=== PATIENT | male | born 1950 | race Caucasian/White ===

== ENCOUNTER 2016-04-19 03:53 | Inpatient (IN) | payer OTHER, MEDICAID, MEDICARE ==
[2016-04-19] VITALS (18 sets, daily range): BP systolic 98–203; BP diastolic 54–78; PULSE 69–136; RESP 18–38; TEMP 98–99.8; O2SAT 78–98
[~2016-04-19] VITALS: Ht 180.3 cm; Wt 95.4 kg
[~2016-04-19 03:53] MED LIST: FLOV110A INH; FLUT50I NASAL; IPRA0.02 IN; LEVA500T33 PO; REME15TA PO; RIVA15 PO; TRAZ100 PO; UMEC1AER PO
[2016-04-19] MEDS ORDERED: ONDANSETRON HCL 4 MG/2 ML VIAL IV PUSH ONE (04:00)
[2016-04-19] MEDS ORDERED: SODIUM CHLORIDE 0.9% FLUSH 5 ML FLUSH IVF PRN (04:00)
[2016-04-19] MEDS ORDERED: RESP: ALBUTEROL 2.5 MG/IPRATROPIUM 0.5 MG NEB (SCH) ONE ×2 (04:03→04:04)
[2016-04-19] MEDS ORDERED: RESP: ALBUTEROL 2.5 MG/IPRATROPIUM 0.5 MG NEB (PRN) ONE (04:04)
[2016-04-19 04:14] LABS: BASOPHIL # 0.1 TH/MM3 (0-0.2); BASOPHIL % 0.6 % (0.0-2.0); EOSINOPHIL # 0.4 TH/MM3 (0-0.4); EOSINOPHIL % 2.6 % (0.0-4.0); HEMATOCRIT 50.9 % (39.0-51.0); HEMO FLAGS DIFF FINAL; LYMPH % 18.6 % (9.0-44.0); MEAN CELL VOLUME 83.7 FL (80.0-100.0); MEAN CORPUSCULAR HEMOGLOBIN 27.4 PG (27.0-34.0); MEAN CORPUSCULAR HGB CONC 32.7 % (32.0-36.0); MONO % 3.2 % (0.0-8.0); PLATELET COUNT 213 TH/MM3 (150-450); RED BLOOD COUNT 6.08 MIL/MM3 (4.50-5.90); RED CELL DISTRIBUTION WIDTH 16.3 % (11.6-17.2)
[2016-04-19] MEDS ORDERED: UMEC1AER INH (04:15)
[2016-04-19] MEDS ORDERED: REME15TA PO (04:15)
[2016-04-19] MEDS ORDERED: FLUTI110I INH (04:15)
[2016-04-19] MEDS ORDERED: IPRA1POW8 (04:15)
[2016-04-19] MEDS ORDERED: CEPH-459 PO (04:15)
[2016-04-19] MEDS ORDERED: TRAZ100T4 PO (04:15)
[2016-04-19] MEDS ORDERED: FLUT1SPR22 (04:15)
[2016-04-19 04:24] LABS: APTT (PATIENT) 23.8 SEC (24.3-30.1); INTERNATIONAL NORMALIZED RATIO 0.9 RATIO; PROTHROMBIN TIME - PATIENT 10.2 SEC (9.8-11.6)
[2016-04-19 04:28] LABS: MAGNESIUM 1.8 MG/DL (1.5-2.5); POTASSIUM 4.1 MEQ/L (3.5-5.1)
--- NOTE | 2016-04-19 04:32 | RADRPT ---
EXAM DATE/TIME: 04/19/2016 04:08 [facility] COMPARISON: CHEST SINGLE AP, January 23, 2016, 12:07. INDICATIONS : Shortness of breath. MEDICAL HISTORY : Chronic obstructive pulmonary disease. Carcinoma, lung. Pneumonia SURGICAL HISTORY : None. ENCOUNTER: Initial ACUITY: 1 day PAIN SCORE: Non-responsive. LOCATION: Bilateral chest FINDINGS: A single view of the chest demonstrates hyperinflation and right midlung and right basilar consolidat ion. Left lung clear. Stable density in the right upper lobe. The cardiomediastinal contours are unre markable. Osseous structures are intact. CONCLUSION: 1. Interval development of probable pneumonia in the right midlung and right lower lobe. 2. Opacity in the right upper lobe is unchanged. 3. Recommend treatment and followup to resolution. Kuashik Littlejohn MD on April 19, 2016 at 4:29 Board Certified Radiologist. This report was verified electronically.
[2016-04-19] MEDS ORDERED: VANCOMYCIN INJ 1,000 MG in SODIUM CHLOR 0.9% 250 ML INJ 250 ML IV ONE (04:45)
[2016-04-19] MEDS ORDERED: PIPERACIL-TAZO 4.5 GM PREMIX 100 ML IV ONE (04:45)
[2016-04-19 04:57] LABS: BLOOD GAS VENOUS BASE EXCESS -0.5 mmol/L (-2-2); BLOOD GAS VENOUS HCO3 25 mmol/L (22-26); BLOOD GAS VENOUS O2 CONTENT 22.7 Vol % (9.0-17.0); BLOOD GAS VENOUS O2 HGB SAT 91 % (70-76); BLOOD GAS VENOUS PCO2 46 mmHg (44-48); BLOOD GAS VENOUS PO2 117 mmHg (35-40); BLOOD GAS VENOUS pH 7.34 (7.360-7.400); TEMP CORR TO 98.6
[2016-04-19 04:58] LABS: CRITICAL VALUE NO; OXYGEN DEVICE BiPAP
[2016-04-19 04:59] LABS: FIO2 100 %
[2016-04-19 05:00] LABS: DRAW SITE IV; STAT YES
[2016-04-19] MEDS ORDERED: SODIUM CHLOR 0.9% 1000 ML INJ 1,000 ML IV ONE ×2 (05:00)
--- NOTE | 2016-04-19 05:45 | HHI.HP ---
HPI Service Critical Care Medicine Primary Care Physician Non-Staff Admission Diagnosis Hypoxic Respiratory failure, Severe Sepsis, PNA. Diagnosis: Chief Complaint: Can't breathe. Travel History International Travel<30 Days: No Contact w/Intl Traveler <30 Da: No Traveled to Known Affected Are: No History of Present Illness 65 y/o man with longstanding COPD presents with hypoxemic respiratory distress. Improved on BiPAP, still requiring 85% FiO2. Chronic right lung infiltrate followed by Dr. Kearns. Review of Systems ROS No chest pain. Severe SOB. Past Family Social History Allergies: Uncoded Allergies: PERFUMES/COLOGNES (Adverse Reaction, Intermediate, Wheezing, 01/23/16) SOB/DIFFICULTY BREATHING Past Medical History Past Medical History COPD Pulmonary embolus Atrial fibrillation with RVR Past Surgical History Wrist surgery Right shoulder surgery Reported Medications Ipratropium [place] 0.03 % Spr 2 [place] NA BID Ipratropium [place] 1 IN Anoro Ellipta 62.5-25 Mcg/INH (Umeclidinium-Vilanterol) 1 Aer Aer 1 Inhaler PO DIRECTED Flovent Hfa (Fluticasone Propionate) 110 Mcg Aer 1 Puff INH BID Ventolin Hfa (Albuterol Sulfate) 8 Gm Aero 1 Puff INH Q4H PRN * SHAKE WELL BEFORE USE * Mobic (Meloxicam) 15 Mg Tab 15 Mg PO DAILY Remeron 15 mg (Mirtazapine) 15 Mg Tab 1 Tab PO HS Trazodone Hcl (Trazodone HCl) 100 Mg Tab 100 Mg PO HS Ultram (Tramadol HCl) 50 Mg Tab 100 Mg PO Q4H PRN Prednisone 5 Mg Tab 10 Mg PO DAILY Allergies: Coded Allergies: No Known Allergies (Verified , 12/25/15) Family History Colon cancer Social History Quit smoking a few weeks ago. Had smoked 1 pack per day for many years prior to that. Denies alcohol or illicit drug use. Physical Exam Vital Signs Vital Signs Date Time Temp Pulse Resp B/P Pulse Ox O2 Delivery O2 Flow Rate FiO2 04/19/16 04:48 126 26 109/64 98 BiPAP 04/19/16 04:18 98 100 04/19/16 04:09 136 38 171/66 94 BiPAP 04/19/16 04:00 122 38 97 Aerosol Mask 04/19/16 04:00 97 Aerosol Mask 04/19/16 04:00 38 97 Aerosol Mask 04/19/16 03:56 99.8 122 38 142/78 97 Physical Exam Gen: Ill-appearing man in respiratory distress. Head: Normal. Neck: Supple, airway widely patent. Heart: Irreg Irreg, rate 120s. No JVD. Distant sounds. Lungs: Some wheezing but acceptable air entry now. Tachypnea, labored. No crackles. Abdomen: Soft. nondistended, No guarding. Extremities: Warm, well perfused. Neuro: O X 3, anxious. M/S grossly intact. Laboratory Laboratory Tests Test 04/19/16 04/19/16 04/19/16 04:00 04:21 04:35 White Blood Count 16.0 Red Blood Count 6.08 Hemoglobin 16.6 Hematocrit 50.9 Mean Corpuscular Volume 83.7 Mean Corpuscular Hemoglobin 27.4 Mean Corpuscular Hemoglobin 32.7 Concent Red Cell Distribution Width 16.3 Platelet Count 213 Mean Platelet Volume 8.8 Neutrophils (%) (Auto) 75.0 Lymphocytes (%) (Auto) 18.6 Monocytes (%) (Auto) 3.2 Eosinophils (%) (Auto) 2.6 Basophils (%) (Auto) 0.6 Neutrophils # (Auto) 12.0 Lymphocytes # (Auto) 3.0 Monocytes # (Auto) 0.5 Eosinophils # (Auto) 0.4 Basophils # (Auto) 0.1 CBC Comment DIFF FINAL Differential Comment Prothrombin Time 10.2 Prothromb Time International 0.9 Ratio Activated Partial 23.8 Thromboplast Time Sodium Level 143 Potassium Level 4.1 Chloride Level 108 Carbon Dioxide Level 29.0 Anion Gap 6 Blood Urea Nitrogen 21 Creatinine 0.88 Estimat Glomerular Filtration 87 Rate Random Glucose 130 Calcium Level 8.9 Magnesium Level 1.8 Troponin I 0.02 Blood Gas Puncture Site IV Blood Gas Patient Temperature 98.6 Venous Blood pH 7.34 Venous Blood Partial Pressure 46 CO2 Venous Blood Partial Pressure 117 O2 Venous Blood HCO3 25 Venous Blood Oxygen Saturation 91 Venous Blood Oxygen Content 22.7 Venous Blood Base Excess -0.5 Oxygen Delivery Device BiPAP Blood Gas Inspired Oxygen 100 Lactic Acid Level 2.2 Date/Time Procedure Status Source Growth 04/19/16 04:35 Aerobic Blood Culture Received Blood Peripheral Pending 04/19/16 04:35 Anaerobic Blood Culture Received Blood Peripheral Pending Result Diagram: 04/19/1639904/19/160 Assessment and Plan Assessment and Plan Assess: 1. Hypoxemic Respiratory Failure. 2. COPD exacerbation. 3. Chronic Right Lung infiltrate. 4. Paroxysmal A-fib. 5. Hx of Pulmonary Embolus. Plan: 1. BiPAP. 2. Keep sats 88 - 93%. 3. Steroids. 4. Bronchodilators. 5. Cover with levaquin.. 6. Review ID workup from previous admission. 7. Heparin 5000 bib. 8. Pepcid. Overall impression: Critically ill with hypoxemic respiratory failure requiring BiPAP NIV and high FiO2; may require intubation and mechanical ventilation soon. Critical care 38 mins Joselito Blas MD Apr 19, 2016 05:44
--- NOTE | 2016-04-19 05:58 | PD ---
HPI Chief Complaint: Respiratory Distress Time Seen by Provider: 03:56 Travel History International Travel<30 days: No Contact w/Intl Traveler<30days: No Traveled to known affect area: No History of Present Illness HPI Patient is 65-year-old male with a history of COPD presents emergency Department with fairly sudden onset shortness of breath tonight. Patient called 911 on EMS arrival patient was satting 77 on room air. Patient was started on treatments and received 125 mg Solu-Medrol in route. On arrival patient appears significant only short of breath, he vomited once just on arrival and did receive some Zofran as well. Patient is followed by Dr. Thompson for history of COPD and a cavitary lesion in his right upper lobe. Patient does have an ankle bracelet on but states he has not been to [facility] recently, denies hemoptysis denies night sweats. Denies any history of contact with tuberculosis. Patient denies any fever. PFSH Past Medical History Hx Anticoagulant Therapy: Yes (XARELTO) Arthritis: Yes Asthma: Yes Blood Disorders: No Anxiety: Yes (TAKES TRAZADONE) Depression: No Cancer: No Cardiovascular Problems: Yes (ARRYTHMIA) COPD: Yes Dementia: Yes Diminished Hearing: No Endocrine: No GERD: Yes Genitourinary: No Headaches: Yes Hepatitis: Yes (hep c) Hypertension: Yes Immune Disorder: No Implanted Vascular Access Dvce: Yes Musculoskeletal: No Neurologic: Yes (DIZZINESS, HEADACHES) Psychiatric: Yes Reproductive: No Respiratory: Yes (COPD, PNEUMONIA, ASTHMA) Pancreatitis: Yes Past Surgical History Body Medical Devices: HAS RIGHT ANKLET ON FOR HOUSE ARREST ON RIGHT ANKLE Other Surgery: Yes (LEFT/RIGHT WRIST, SHOULDER REPAIR) Social History Alcohol Use: No Tobacco Use: Yes Substance Use: No Allergies-Medications (Allergen,Severity, Reaction): Uncoded Allergies: PERFUMES/COLOGNES (Adverse Reaction, Intermediate, Wheezing, 01/23/16) SOB/DIFFICULTY BREATHING Reported Meds & Prescriptions Reported Meds & Active Scripts Active Reported Allergy Nasal [place] 24 Ho (Fluticasone Propionate (Nasal)) 50 Mcg/Act Spr Ipratropium [place] 1 Pow Pow Anoro Ellipta Inh (Umeclidinium/Vilanterol) 62.5-25 Mcg/Act Aero 1 Puff INH DAILY Trazodone (Trazodone HCl) 100 Mg Tab 100 Mg PO HS Keflex (Cephalexin) 250 Mg Cap 250 Mg PO Q6H Remeron (Mirtazapine) 15 Mg Tab 15 Mg PO HS Flovent Hfa 12 GM Inh (Fluticasone Propionate) 110 Mcg/Act Inh 2 Puff INH BID Review of Systems Except as stated in HPI: all other systems reviewed are Neg Physical Exam Narrative GENERAL: [Well-developed, well-nourished, appears significant short of breath tripod position intercostal and supraclavicular retractions. Tachycardic and tachypneic speaking in short phrases only. SKIN: Warm and dry. HEAD: Atraumatic. Normocephalic. EYES: Pupils equal and round. No scleral icterus. No injection or drainage. ENT: No nasal bleeding or discharge. Mucous membranes pink and moist. NECK: Trachea midline. No JVD. CARDIOVASCULAR: Tachycardia with regular rhythm. No murmur appreciated. RESPIRATORY: No increased respiratory work of breathing as above, decreased air entry bilaterally. No rales or rhonchi appreciated. Tachypneic. GASTROINTESTINAL: Abdomen soft, non-tender, nondistended. Hepatic and splenic margins not palpable. MUSCULOSKELETAL: No obvious deformities. No clubbing. No cyanosis. No edema. NEUROLOGICAL: Awake and alert. No obvious cranial nerve deficits. Motor grossly within normal limits. Normal speech. PSYCHIATRIC: Appropriate mood and affect; insight and judgment normal. Data Data Last Documented VS Vital Signs Date Time Temp Pulse Resp B/P Pulse Ox O2 Delivery O2 Flow Rate FiO2 04/19/16 04:48 126 26 109/64 98 BiPAP 04/19/16 04:18 100 04/19/16 03:56 99.8 Orders Electrocardiogram (04/19/16 03:56) Basic Metabolic Panel (Bmp) (04/19/16 03:56) Complete Blood Count With Diff (04/19/16 03:56) Magnesium (Mg) (04/19/16 03:56) Prothrombin Time / Inr (Pt) (04/19/16 03:56) Act Partial Throm Time (Ptt) (04/19/16 03:56) Troponin I (04/19/16 03:56) Ecg Monitoring (04/19/16 03:56) Bilateral Bp Monitoring (04/19/16 03:56) Iv Access Insert/Monitor (04/19/16 03:56) Oximetry (04/19/16 03:56) Oxygen Administration (04/19/16 03:56) Sodium Chloride 0.9% Flush (Ns Flush) (04/19/16 04:00) Chest, Single Ap (04/19/16 ) Resp Bipap / Cpap Non Invas Vt (04/19/16 ) Ondansetron Inj (Zofran Inj) (04/19/16 04:00) Albuterol-Ipratropium Neb (Duoneb Neb) (04/19/16 04:03) Albuterol-Ipratropium Neb (Duoneb Neb) (04/19/16 04:04) Albuterol-Ipratropium Neb (Duoneb Neb) (04/19/16 04:04) Blood Gas Venous (Vbg) (04/19/16 04:23) Lactic Acid (04/19/16 04:31) Vancomycin Inj (Vancomycin Inj) (04/19/16 04:45) Piperacil-Tazo 4.5 Gm Premix (Zosyn 4.5 (04/19/16 04:45) Blood Culture (04/19/16 04:31) Isolation 08,20 (04/19/16 04:34) Sodium Chlor 0.9% 1000 Ml Inj (Ns 1000 M (04/19/16 05:00) Sodium Chlor 0.9% 1000 Ml Inj (Ns 1000 M (04/19/16 05:00) Admit Order (Ed Use Only) (04/19/16 ) Labs Laboratory Tests Test 04/19/16 04/19/16 04/19/16 04:00 04:21 04:35 White Blood Count 16.0 TH/MM3 Red Blood Count 6.08 MIL/MM3 Hemoglobin 16.6 GM/DL Hematocrit 50.9 % Mean Corpuscular Volume 83.7 FL Mean Corpuscular Hemoglobin 27.4 PG Mean Corpuscular Hemoglobin 32.7 % Concent Red Cell Distribution Width 16.3 % Platelet Count 213 TH/MM3 Mean Platelet Volume 8.8 FL Neutrophils (%) (Auto) 75.0 % Lymphocytes (%) (Auto) 18.6 % Monocytes (%) (Auto) 3.2 % Eosinophils (%) (Auto) 2.6 % Basophils (%) (Auto) 0.6 % Neutrophils # (Auto) 12.0 TH/MM3 Lymphocytes # (Auto) 3.0 TH/MM3 Monocytes # (Auto) 0.5 TH/MM3 Eosinophils # (Auto) 0.4 TH/MM3 Basophils # (Auto) 0.1 TH/MM3 CBC Comment DIFF FINAL Differential Comment Prothrombin Time 10.2 SEC Prothromb Time International 0.9 RATIO Ratio Activated Partial 23.8 SEC Thromboplast Time Sodium Level 143 MEQ/L Potassium Level 4.1 MEQ/L Chloride Level 108 MEQ/L Carbon Dioxide Level 29.0 MEQ/L Anion Gap 6 MEQ/L Blood Urea Nitrogen 21 MG/DL Creatinine 0.88 MG/DL Estimat Glomerular Filtration 87 ML/MIN Rate Random Glucose 130 MG/DL Calcium Level 8.9 MG/DL Magnesium Level 1.8 MG/DL Troponin I 0.02 NG/ML Blood Gas Puncture Site IV Blood Gas Patient Temperature 98.6 Venous Blood pH 7.34 Venous Blood Partial Pressure 46 mmHg CO2 Venous Blood Partial Pressure 117 mmHg O2 Venous Blood HCO3 25 mmol/L Venous Blood Oxygen Saturation 91 % Venous Blood Oxygen Content 22.7 Vol % Venous Blood Base Excess -0.5 mmol/L Oxygen Delivery Device BiPAP Blood Gas Inspired Oxygen 100 % Lactic Acid Level 2.2 mmol/L MDM Medical Decision Making Medical Screen Exam Complete: Yes Emergency Medical Condition: Yes Interpretation(s) EKG interpretation somewhat limited by motion artifact. Sinus tachycardia at a rate of 130, normal axis and normal R-wave progression. No obvious ST-T changes. This is an abnormal EKG. Differential Diagnosis COPD exacerbation, pneumonia, CHF, Sirs, sepsis, ACS, [place]. Narrative Course Patient was roomed in the emergency department, he is significant short of breath. He does agree to intubation should it be required. Certainly there is a risk of aspiration given a history of vomiting. However we'll very cautiously try him on a trial of BiPAP. He is started on the mask and tolerated it significantly well. He was given Zofran, chest x-ray reveals significant ammonia of the right lung, cavitary lesion is unchanged. He was placed on respiratory isolation in the emergency department. He did improve with BiPAP in the ER. Broad-spectrum antibiotics were started, he does have an elevated white blood cell count. Fluid resuscitation To a minimum given his lactic acid is 2.2. 2 L normal saline were started. ABG is reassuring PCO2 is 46 and a pH is 7.34. Patient was satting 98% on BiPAP. However he is requiring significant oxygen levels to maintain a saturation. Monitor very closely for emesis and displayed none while he was in the emergency department for 2 hours. Patient was discussed with Dr. Ballesteros who will admit. Critical Care Narrative Aggregate critical care time was 35 minutes. Time to perform other separately billable procedures was not included in the critical care time. My time did not include minutes spent treating any other patients simultaneously or on activities that did not directly contribute to the patient's treatment. The services I provided to this patient were to treat and/or prevent clinically significant deterioration that could result in: and permanent disability. I provided critical care services requiring my management, as noted below: Chart data review, documentation time, medication orders and management, vital sign assessments/reviewing monitor data, ordering and reviewing lab tests, ordering and interpreting/reviewing x-rays and diagnostic studies, care of the patient and discussion of the patient with the admitting physicians. Diagnosis Primary Impression: Sepsis Qualified Code: A41.9 - Sepsis, due to unspecified organism Additional Impressions: Acute respiratory failure with hypoxia Pneumonia COPD (chronic obstructive pulmonary disease) Admitting Information Admitting Physician Requests: Admit Condition: Critical Donny Sandoval MD Apr 19, 2016 05:58
[2016-04-19] MEDS ORDERED: ACETAMINOPHEN 325 MG TAB PO PRN (06:00)
[2016-04-19] MEDS ORDERED: CHLORHEXIDINE GLUCONATE 2 % 1 PACK (2 CLOTHS) TOP PRN (06:00)
[2016-04-19] MEDS ORDERED: MISCELLANEOUS NURSING INFORMATION XX SCH (06:00)
[2016-04-19] MEDS: SODIUM CHLOR 0.9% 1000 ML INJ 1,000 ML IV SCH ×2 (06:37→17:34)
[2016-04-19] MEDS: RESP: ALBUTEROL 2.5 MG/IPRATROPIUM 0.5 MG NEB (SCH) NEB ×4 (08:00→20:39)
[2016-04-19] MEDS: MORPHINE SULFATE 4 MG/ML INJ IV PRN ×6 (08:31→23:41)
[2016-04-19] MEDS: SODIUM CHLORIDE 0.9% FLUSH 5 ML FLUSH IV FLUSH SCH ×2 (08:32→20:29)
[2016-04-19] MEDS: HYDROCORTISONE SOD SUCCINATE 100 MG VIAL IV PUSH SCH ×4 (08:32→23:29)
[2016-04-19] MEDS: FAMOTIDINE 20 MG TAB PO SCH ×2 (08:32→20:28)
[2016-04-19] MEDS: LEVOFLOXACIN 750 MG PREMIX INJ 150 ML IV SCH (08:32)
[2016-04-19] MEDS: HEPARIN SODIUM - SQ 10,000 UNITS/ML VIAL SQ SCH ×2 (08:32→20:27)
[2016-04-19] MEDS ORDERED: IOHEXOL 350 MG/ML 10 ML VIAL (for RAD DIAG) IV ONE ×2 (09:48→10:22)
[2016-04-19] MEDS ORDERED: ONDANSETRON HCL 4 MG/2 ML VIAL IV PRN (10:00)
--- NOTE | 2016-04-19 10:06 | RADRPT ---
EXAM DATE/TIME: 04/19/2016 09:43 [facility] COMPARISON: CT PULMONARY ANGIOGRAM, November 26, 2015, 10:55. INDICATIONS : Dyspnea and chest pain IV CONTRAST: 74 cc Omnipaque 350 (iohexol) IV RADIATION DOSE: 23.44 CTDIvol (mGy) MEDICAL HISTORY : Chronic obstructive pulmonary disease. Hypertension. SURGICAL HISTORY : None. ENCOUNTER: Initial ACUITY: 1 day PAIN SCALE: 8/10 LOCATION: Bilateral chest TECHNIQUE: Volumetric scanning of the chest was performed using a pulmonary embolism protocol MIP images were re constructed. Using automated exposure control and adjustment of the mA and/or kV according to patien t size, radiation dose was kept as low as reasonably achievable to obtain optimal diagnostic quality images. FINDINGS: PULMONARY ARTERIES: No filling defects are seen in the pulmonary arteries through the segmental level. LUNGS: The lungs are significant for extensive areas of interlobular thickening within the right upper lobe with adjacent areas of bronchiectasis. This appears slightly more confluent as compared to the prior exam. Additional areas of reticular and alveolar airspace disease are identified within the anterior aspect of the right upper lobe, right middle lobe and within the basilar aspects of the right upper l obe and right lower lobe. Given that these are new this likely reflects acute infection versus edema. There is a small right-sided pleural effusion noted. The background lung parenchyma demonstrates dif fuse centrilobular emphysema. PLEURAE: Small right-sided pleural effusion. MEDIASTINUM: There is good visualization of the great vessels of the middle mediastinum. No evidence of mediastin al or hilar adenopathy/mass. MUSCULOSKELETAL: Within normal limits for patient age. MISCELLANEOUS: The visualized upper abdominal organs demonstrate no acute abnormality. CONCLUSION: Progressive areas of airspace consolidation identified within the right upper lobe, right middle lobe and right lower lobe. This is consistent with acute infection in the setting of background centrilob ular emphysema and bronchiectasis within the right upper lobe. No evidence of PE.. Zita Salinas MD on April 19, 2016 at 9:59 Board Certified Radiologist. This report was verified electronically.
[2016-04-19] MEDS: FLUTICASONE PROPIONATE 110 MCG/ACT 12 GM INHALER INH SCH ×2 (10:21→21:04)
--- NOTE | 2016-04-19 12:27 | EKG ---
Date Performed: 04/19/2016 Time Performed: 03:55:06 PTAGE: 65 years EKG: SINUS TACHYCARDIA POSSIBLE RIGHT ATRIAL ABNORMALITY WHICH IS NEW SINCE PRIOR TRACING. ABNOR MAL RHYTHM ECG PREVIOUS TRACING : 01/23/2016 11.20 DOCTOR: Ned Moya Interpretating Date/Time 04/19/2016 12:26:12
--- NOTE | 2016-04-19 15:17 | PD.CONS ---
History of Present Illness Service Infectious Disease Consult Requested By Dr Weiss Reason for Consult Evaluate patient with PNA, hx aspergillus in sputum from last admission Primary Care Physician Non-Staff Diagnoses: History of Present Illness Patient seen and examined. Records reviewed. Patient is a 65-year-old male, with known COPD, presented to the hospital with an acute onset of severe shortness of breath. Patient has known emphysema and COPD, and as a baseline he gets shortness of breath usually when he does any kind of exertion. He does not use oxygen at home. He was hospitalized back in December and at that time he had a right upper lobe cavitary lesion, underwent bronchoscopy, that grew Pseudomonas, negative AFB, and a sputum that had Aspergillus. He was treated for Pseudomonas pneumonia, and he was being followed by the community organization aide. Patient normally has some mild cough and he brings up some phlegm sometimes whitish at times brownish and sometimes blood- tinged. He also has chest pain on the middle of his chest, that he describes as heavy in sensation, and states that this usually brings about and worsen his breathing problem. He had an episode of vomiting on the day of admission due to the severe shortness of breath. He has not really noted any worsening of his cough. He denies any fever or chills or night sweats. He has not had any significant weight loss. Denies any significant diarrhea, or abdominal pain. He has no prior history of tuberculosis. He has no exposure to pets or birds. Patient lives alone. His last chest x-ray here was from January, and that it was when he had an ED visit. He had a stable right upper lobe cavitary lesion. On this admission patient was found to have significant infiltrates on his whole right lung. Area lesion in the right upper lobe has been stable. Patient has been afebrile. He is on 2 L nasal O2 with good saturation. His WBC is 16,000. Infectious disease consultation has been requested to evaluate the patient. Review of Systems Constitutional: DENIES: Fever, Weight loss, Chills, Night Sweats Eyes: DENIES: Eye pain Ears, nose, mouth, throat: DENIES: Nasal discharge, Oral lesions, Throat pain, Ear Pain, Running Nose, Sinus Pain, Toothache Respiratory: COMPLAINS OF: Cough, Wheezing, Hemoptysis, Sputum production, Shortness of breath Cardiovascular: COMPLAINS OF: Chest pain, Dyspnea on Exertion, DENIES: Palpitations, Syncope, Lower Extremity Edema Gastrointestinal: COMPLAINS OF: Vomiting, DENIES: Abdominal pain, Constipation , Diarrhea, Nausea, Difficulty Swallowing Genitourinary: DENIES: Urgency, Hematuria, Dysuria Musculoskeletal: DENIES: Joint pain, Joint Swelling Integumentary: DENIES: Nail changes, Pruritus, Rash Hematologic/lymphatic: DENIES: Bruising, Lymphadenopathy Immunologic/allergic: DENIES: Urticaria Neurologic: COMPLAINS OF: Paresthesias, DENIES: Headache, Localized weakness Psychiatric: COMPLAINS OF: Anxiety Past Family Social History Allergies: Uncoded Allergies: PERFUMES/COLOGNES (Adverse Reaction, Intermediate, Wheezing, 01/23/16) SOB/DIFFICULTY BREATHING Past Medical History COPD, has emphysema seen on his CT Pulmonary embolus Atrial fibrillation with RVR RUL cavitary lesion seen in CT and CXR from November 2015, Rx for pNA 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 Had smoked 1 pack per day for many years prior to that. Denies alcohol Denies illicit drug use. Physical Exam Vital Signs Vital Signs Date Time Temp Pulse Resp B/P Pulse Ox O2 Delivery O2 Flow Rate FiO2 04/19/16 13:34 17 04/19/16 12:00 85 04/19/16 12:00 98.4 85 32 105/58 95 04/19/16 10:00 90 04/19/16 09:00 94 Nasal Cannula 2.00 04/19/16 08:00 90 04/19/16 08:00 98.8 90 21 100/63 95 04/19/16 06:59 98.1 101 20 108/60 95 04/19/16 06:37 97 18 203/60 98 BiPAP 85 04/19/16 05:46 116 18 98/54 98 BiPAP 04/19/16 04:48 126 26 109/64 98 BiPAP 04/19/16 04:18 98 100 04/19/16 04:09 136 38 171/66 94 BiPAP 04/19/16 04:00 122 38 97 Aerosol Mask 04/19/16 04:00 97 Aerosol Mask 04/19/16 04:00 38 97 Aerosol Mask 04/19/16 03:56 99.8 122 38 142/78 97 Physical Exam GENERAL: This is a well-nourished, well-developed male, awake and alert, SOB at rest. SKIN: Cool and moist. No generalized rash, no ecchymoses. HEAD: Atraumatic. Normocephalic. No temporal or scalp tenderness. EYES: [place] conjunctivae. Pupils equal round and reactive. Extraocular motions intact. No scleral icterus. No injection or drainage. ENT: Nose without bleeding, or purulent drainage. Moist oral mucosa. Throat without erythema, or tonsillar hypertrophy. Uvula midline. Airway patent. NECK: Trachea midline. No JVD or lymphadenopathy. Supple, nontender, no meningeal signs. CARDIOVASCULAR: Distandt heart sounds, difficult to fully evaluate due to the diffuse rhonchi. RESPIRATORY: Diffuse rhonchi, worse on R than on L, increased vocal fremitus on R GASTROINTESTINAL: Abdomen soft, non-tender, nondistended. No hepato-splenomegaly , or palpable masses. No guarding. MUSCULOSKELETAL: Extremities without clubbing, cyanosis, or edema. No joint effusion, or edema noted. No calf tenderness. NEUROLOGICAL: Awake and alert. Cranial nerves II through XII intact. Motor and sensory grossly within normal limits. Five out of 5 muscle strength in all muscle groups. Normal speech. PSYCH: Anxious due to SOB, cooperative LINE: PIV with no evidence of infection Laboratory Laboratory Tests Test 04/19/16 04/19/16 04/19/16 04/19/16 04:00 04:21 04:35 07:25 White Blood Count 16.0 Red Blood Count 6.08 Hemoglobin 16.6 Hematocrit 50.9 Mean Corpuscular Volume 83.7 Mean Corpuscular Hemoglobin 27.4 Mean Corpuscular Hemoglobin 32.7 Concent Red Cell Distribution Width 16.3 Platelet Count 213 Mean Platelet Volume 8.8 Neutrophils (%) (Auto) 75.0 Lymphocytes (%) (Auto) 18.6 Monocytes (%) (Auto) 3.2 Eosinophils (%) (Auto) 2.6 Basophils (%) (Auto) 0.6 Neutrophils # (Auto) 12.0 Lymphocytes # (Auto) 3.0 Monocytes # (Auto) 0.5 Eosinophils # (Auto) 0.4 Basophils # (Auto) 0.1 CBC Comment DIFF FINAL Differential Comment Prothrombin Time 10.2 Prothromb Time International 0.9 Ratio Activated Partial 23.8 Thromboplast Time Sodium Level 143 Potassium Level 4.1 Chloride Level 108 Carbon Dioxide Level 29.0 Anion Gap 6 Blood Urea Nitrogen 21 Creatinine 0.88 Estimat Glomerular Filtration 87 Rate Random Glucose 130 Calcium Level 8.9 Magnesium Level 1.8 Troponin I 0.02 Blood Gas Puncture Site IV Blood Gas Patient Temperature 98.6 Venous Blood pH 7.34 Venous Blood Partial Pressure 46 CO2 Venous Blood Partial Pressure 117 O2 Venous Blood HCO3 25 Venous Blood Oxygen Saturation 91 Venous Blood Oxygen Content 22.7 Venous Blood Base Excess -0.5 Oxygen Delivery Device BiPAP Blood Gas Inspired Oxygen 100 Lactic Acid Level 2.2 Nasal Screen MRSA (PCR) NEGATIVE Date/Time Procedure Status Source Growth 04/19/16 10:30 Legionella Antigen Received Urine Catheterized Urine Pending 04/19/16 10:30 Streptococcus pneumoniae Antigen (M Received Urine Catheterized Urine Pending 04/19/16 10:20 Influenza Types A,B Antigen (GERI) - Final Complete Nasal Washing NEGATIVE FOR FLU A AND B ANTIGEN.... 04/19/16 10:20 Gram Stain Received Sputum Expectorated Sputum Pending 04/19/16 10:20 Sputum Culture Received Sputum Expectorated Sputum Pending 04/19/16 04:35 Aerobic Blood Culture Received Blood Peripheral Pending 04/19/16 04:35 Anaerobic Blood Culture Received Blood Peripheral Pending Result Diagram: 04/19/16 0400 04/19/16 0400 Imaging RADIOLOGY STUDIES/FILMS REVIEWED Chest X-Ray 04/19/16 0000 Signed Impressions: Service Date/Time: April 04:08 - CONCLUSION: 1. Interval development of probable pneumonia in the right midlung and right lower lobe. 2. Opacity in the right upper lobe is unchanged. 3. Recommend treatment and followup to resolution. Kaushik Littlejohn MD CT Angiography 04/19/16 0000 Signed Impressions: Service Date/Time: April 09:43 - CONCLUSION: Progressive areas of airspace consolidation identified within the right upper lobe, right middle lobe and right lower lobe. This is consistent with acute infection in the setting of background centrilobular emphysema and bronchiectasis within the right upper lobe. No evidence of PE.. Zita Salinas MD Assessment and Plan Assessment and Plan IMPRESSION Extensive PNA on R, came from home, previously had PSAE, patient with COPD/ emphysema Chronic cavitary RUL lesion, previous bronch, Dec 2015 neg AFB, has Aspergillus of unclear significance, ?colonization COPD RECOMMENDATION Follow sputum C/S MTB PCR has been ordered IV Zosyn and Levaquin Will adjust Abx ocne C/S finalized Also on steroids Monitor progress Will follow with you Thank you for this consultation Discussed Condition With D/W Migdalia Paez MD Apr 19, 2016 15:16
[2016-04-19] MEDS: PIPERACIL-TAZO 4.5 GM PREMIX 100 ML IV SCH ×2 (17:33→21:05)
--- NOTE | 2016-04-19 18:02 | MB ---
cc: ISAAC GRAY DATE OF CONSULTATION 04/19/16 REASON FOR CONSULTATION Pneumonia. HISTORY OF PRESENT ILLNESS Mr. James is a 65-year-old male with known history of COPD, has as previous history of pneumonia and hemoptysis. Bronchoscopy was done in November of 2015. Cytology was negative as well as the patient's cultures. He presents with increasing shortness of breath, cough and expectoration of blood tinged sputum as well as right upper and lower lobe pneumonia. The patient was noted to be significantly hypoxemic, presently in intensive care unit on oxygen therapy, on respiratory isolation because of his worsening pneumonia. He denies history of fever, chills, no known history of TB or industrial exposure. PAST MEDICAL HISTORY 1. COPD, 2. Pulmonary embolism 3. Atrial fibrillation 4. Cavitary lesion left upper lung 5. Previous bronchoscopy negative. PAST SURGICAL HISTORY Previous wrist and shoulder surgery MEDICATIONS At home 1. Nebulized Albuterol 2. Symbicort 3. Presently on Solu-Cortef. 4. Levaquin. 5. Remeron. 6. Morphine as needed. 7. Zofran 8. Desyrel 9. Pepcid p.r.n. 10. Tylenol as needed 11. Albuterol as needed ALLERGIES None to medication. Allergic to perfumes SOCIAL HISTORY Used to smoke for 40 years or more. Stopped smoking for several years now. Does not drink any alcohol. Does not use drugs. FAMILY HISTORY Noncontributory. REVIEW OF SYSTEMS A 12-point review of systems as per HPI and past history otherwise negative. PHYSICAL EXAMINATION VITAL SIGNS: Temperature 98, pulse 80, respirations 18, blood pressure 105/60, oxygen saturation 95% on 2 liters oxygen nasal cannula. HEENT: Exam unremarkable. Eyes without icterus. NECK: Without adenopathy or thyroid enlargement. Central trachea. CHEST: Scattered rhonchi right chest: CARDIAC: PMI distant. S1-S2 audible. No murmur or rub. ABDOMEN: Lax, bowel sounds audible. EXTREMITIES: No clubbing, cyanosis or edema. LABORATORY DATA arterial blood gas pH 734, pCO2 46, pO2 117 on BiPap therapy, presently on nasal cannula as above. Sodium 143, potassium 4.1, BUN 21, creatinine 0.8, INR was 0.9. White count 16,000, hemoglobin 16, hematocrit 50. IMAGING STUDIES CT angiogram with worsening pneumonia right upper lobe, right middle lobe and right lower lobe suggestive of an acute infection. IMPRESSION 1. Worsening pneumonia 2. COPD 3. Respiratory failure. PLAN The patient to be maintained on bronchodilator therapy. Antibiotic therapy has been instituted and appropriately so. Infectious Disease will follow the patient regarding his antibiotic therapy. Repeat bronchoscopy will be considered at this time for further evaluation for underlying infection. His course will be followed closely and depending on progress proceed further. Isaac Gray MD WWW/ /4:35 PM /5:48 PM
--- NOTE | 2016-04-19 19:08 | RADRPT ---
EXAM DATE/TIME: 04/19/2016 17:37 [facility] COMPARISON: No previous studies available for comparison. INDICATIONS : Bilateral leg swelling. MEDICAL HISTORY : Chronic obstructive pulmonary disease. Gastroesophageal reflux disease. Hyperte nsion. Headaches. Anticoagulant therapy, xarelto. Pneumonia. Asthma. Pancreatitis. Arthritis. Anxiety . Hepatitis C. SURGICAL HISTORY : Bilateral wrist surgery. Right shoulder surgery. ENCOUNTER: Initial ACUITY: 1 day PAIN SCORE: 0/10 LOCATION: Bilateral legs. TECHNIQUE: Venous ultrasound of the left and right leg was performed from the inguinal ligament t o the proximal calf. Real-time, color Doppler and spectral tracing, compression and augmentation lluvia hniques were used. FINDINGS: RIGHT LEG: There is normal compressibility of the deep venous system from the inguinal region to the proximal calf. No echogenic clot is seen in the lumen of the common femoral, femoral, popliteal, and posterior tibial veins. There is a normal response of the venous system to proximal and distal augmentation and respiration. LEFT LEG: There is normal compressibility of the deep venous system from the inguinal region to t he proximal calf. No echogenic clot is seen in the lumen of the common femoral, femoral, popliteal, and posterior tibial veins. There is a normal response of the venous system to proximal and distal a ugmentation and respiration. CONCLUSION: Negative for DVT Mane Steele MD FACR on April 19, 2016 at 19:05 Board Certified Radiologist. This report was verified electronically.
[2016-04-19] MEDS: traZODone HCL 100 MG TAB PO SCH (20:27)
[2016-04-19] MEDS: MIRTAZAPINE 15 MG TAB PO SCH (20:28)
[2016-04-20] VITALS (14 sets, daily range): BP systolic 101–113; BP diastolic 55–68; PULSE 63–83; RESP 15–19; TEMP 97.7–98.4; O2SAT 91–94
[2016-04-20 01:28] LABS: M. TUBERCULOSIS PCR NOT DETECTED (NOT DETECT)
[2016-04-20] MEDS: MORPHINE SULFATE 4 MG/ML INJ IV PRN ×4 (01:46→10:55)
[2016-04-20] MEDS: RESP: ALBUTEROL 2.5 MG/IPRATROPIUM 0.5 MG NEB (SCH) NEB ×7 (03:20→23:46)
[2016-04-20 03:58] LABS: AUTOMATED NEUTROPHIL # 18.9 TH/MM3 (1.8-7.7); BASOPHIL % 0.2 % (0.0-2.0); HEMATOCRIT 40.1 % (39.0-51.0); HEMO FLAGS DIFF FINAL; LYMPH % 7.8 % (9.0-44.0); LYMPHOCYTE # 1.7 TH/MM3 (1.0-4.8); MEAN CORPUSCULAR HEMOGLOBIN 27.7 PG (27.0-34.0); MEAN CORPUSCULAR HGB CONC 32.9 % (32.0-36.0); MONO % 5.4 % (0.0-8.0); NEUT % 86.6 % (16.0-70.0); PLATELET COUNT 158 TH/MM3 (150-450); RED BLOOD COUNT 4.78 MIL/MM3 (4.50-5.90); RED CELL DISTRIBUTION WIDTH 16.5 % (11.6-17.2); WHITE BLOOD COUNT 21.8 TH/MM3 (4.0-11.0)
[2016-04-20] MEDS: CHLORHEXIDINE GLUCONATE 2 % 1 PACK (2 CLOTHS) TOP SCH (04:00)
[2016-04-20 04:24] LABS: BICARBONATE 28.4 MEQ/L (21.0-32.0); POTASSIUM 4.1 MEQ/L (3.5-5.1)
[2016-04-20] MEDS: PIPERACIL-TAZO 4.5 GM PREMIX 100 ML IV SCH ×4 (04:28→21:51)
[2016-04-20] MEDS: SODIUM CHLOR 0.9% 1000 ML INJ 1,000 ML IV SCH (04:29)
[2016-04-20] MEDS: LEVOFLOXACIN 750 MG PREMIX INJ 150 ML IV SCH (04:30)
[2016-04-20] MEDS: HYDROCORTISONE SOD SUCCINATE 100 MG VIAL IV PUSH SCH ×4 (04:31→23:06)
[2016-04-20] MEDS: FAMOTIDINE 20 MG TAB PO SCH ×2 (08:45→21:00)
[2016-04-20] MEDS: HEPARIN SODIUM - SQ 10,000 UNITS/ML VIAL SQ SCH ×2 (08:45→21:00)
[2016-04-20] MEDS: SODIUM CHLORIDE 0.9% FLUSH 5 ML FLUSH IV FLUSH SCH ×2 (08:46→21:00)
[2016-04-20] MEDS: FLUTICASONE PROPIONATE 110 MCG/ACT 12 GM INHALER INH SCH ×2 (08:46→23:09)
--- NOTE | 2016-04-20 09:11 | HHI.CCPN ---
Subjective Remarks/Hospital Course 65 y/o man with longstanding COPD presents with hypoxemic respiratory distress. Improved on BiPAP, still requiring 85% FiO2. Chronic right lung infiltrate followed by Dr. Kearns. 04/20 No events overnight. Patient is on 3L oxygen with good sats. Afebrile. Objective Vital Signs Date Time Temp Pulse Resp B/P Pulse Ox O2 Delivery O2 Flow Rate FiO2 04/20/16 08:11 94 Nasal Cannula 3.00 04/20/16 06:00 80 04/20/16 05:45 15 04/20/16 04:00 97.7 104/55 04/19/16 06:37 85 Intake and Output 04/19/16 04/19/16 04/20/16 08:00 16:00 00:00 Intake Total 2905 ml 1267 ml Output Total 975 ml 2245 ml Balance 1930 ml -978 ml Result Diagram: 04/20/16 0345 04/20/16 0345 Other Results Laboratory Tests Test 04/19/16 04/20/16 10:20 03:45 M. tuberculosis Complex DNA NOT DETECTED (PCR) Rifampin Resistance ERROR White Blood Count 21.8 TH/MM3 Red Blood Count 4.78 MIL/MM3 Hemoglobin 13.2 GM/DL Hematocrit 40.1 % Mean Corpuscular Volume 84.0 FL Mean Corpuscular Hemoglobin 27.7 PG Mean Corpuscular Hemoglobin 32.9 % Concent Red Cell Distribution Width 16.5 % Platelet Count 158 TH/MM3 Mean Platelet Volume 8.8 FL Neutrophils (%) (Auto) 86.6 % Lymphocytes (%) (Auto) 7.8 % Monocytes (%) (Auto) 5.4 % Eosinophils (%) (Auto) 0.0 % Basophils (%) (Auto) 0.2 % Neutrophils # (Auto) 18.9 TH/MM3 Lymphocytes # (Auto) 1.7 TH/MM3 Monocytes # (Auto) 1.2 TH/MM3 Eosinophils # (Auto) 0.0 TH/MM3 Basophils # (Auto) 0.0 TH/MM3 CBC Comment DIFF FINAL Differential Comment Sodium Level 139 MEQ/L Potassium Level 4.1 MEQ/L Chloride Level 105 MEQ/L Carbon Dioxide Level 28.4 MEQ/L Anion Gap 6 MEQ/L Blood Urea Nitrogen 16 MG/DL Creatinine 0.77 MG/DL Estimat Glomerular Filtration 101 ML/MIN Rate Random Glucose 131 MG/DL Lactic Acid Level 1.1 mmol/L Calcium Level 8.6 MG/DL Phosphorus Level 2.9 MG/DL Magnesium Level 2.0 MG/DL Imaging Last Impressions Lower Extremity Ultrasound 04/19/16 0000 Signed Impressions: Service Date/Time: April 17:37 - CONCLUSION: Negative for DVT Mane Steele MD FACR Chest X-Ray 04/19/16 0000 Signed Impressions: Service Date/Time: April 04:08 - CONCLUSION: 1. Interval development of probable pneumonia in the right midlung and right lower lobe. 2. Opacity in the right upper lobe is unchanged. 3. Recommend treatment and followup to resolution. Kaushik Littlejohn MD CT Angiography 04/19/16 0000 Signed Impressions: Service Date/Time: April 09:43 - CONCLUSION: Progressive areas of airspace consolidation identified within the right upper lobe, right middle lobe and right lower lobe. This is consistent with acute infection in the setting of background centrilobular emphysema and bronchiectasis within the right upper lobe. No evidence of PE.. Zita Salinas MD Objective Remarks GENERAL: Patient is 65 yo lying in bed in no acute resp distress. SKIN: Warm and dry. HEAD: Normocephalic. EYES: No scleral icterus. No injection or drainage. NECK: Supple, trachea midline. No JVD or lymphadenopathy. CARDIOVASCULAR: Regular rate and rhythm without murmurs, gallops, or rubs. RESPIRATORY: Breath sounds equal bilaterally. No accessory muscle use. GASTROINTESTINAL: Abdomen soft, non-tender, nondistended. MUSCULOSKELETAL: No cyanosis, or edema. Neuro: Awake and alert. A/P Assessment and Plan 1. Resp Insuff 2. COPD exacerbation. 3. Right sided pneumonia 4 Leukocytosis 5. Paroxysmal A-fib. 6 Hx of Pulmonary Embolus. Plan: Neuro: Awake and alert Pulm: Continue with oxygen keep sat >92% Bronchodilators, hydrocortisone 60mg Q6 Pulm: Dr. Gray- for possible bronchoscopy on Sunday 04/23 CT chest: No PE, multilobar right sided pneumonia CV: Monitor HR and BP keep MAP>65mmHg : Monitor renal function, electrolytes replacement per protocol. d/c IVF GI: On PO diet ID: Continue with abx per ID ( On Levaquin, Zosyn) monitor for signs of infections ( Fever, WBC) Strep pneumonia and legionella urinary Ag negative, nasal washing negative. Follow up on sputum cx, MTB PCR- negative Heme: Monitor CBC Endo: SSI if needed for glycemic control GI prophylaxis- on Pepcid 20mg Q12 DVT prophylaxis- On Heparin SQ Doppler US LE negative for DVT Case discussed with Dr. Gray. Will sign off and transfer care to [facility] Level 3 Iam Weiss MD Apr 20, 2016 09:11
[2016-04-20 11:02] LABS: RIFAMPIN RESISTANCE NOT DETECTED (NOT DETECT)
[2016-04-20] MEDS ORDERED: oxyCODONE/ACETAMINOPHEN 5 MG/325 MG TAB PO PRN (11:15)
--- NOTE | 2016-04-20 13:03 | HHI.IDPN ---
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 Vital Signs Date Time Temp Pulse Resp B/P Pulse Ox O2 Delivery O2 Flow Rate FiO2 04/20/16 12:00 71 04/20/16 12:00 98.0 71 19 107/55 91 04/20/16 11:01 17 04/20/16 10:00 83 04/20/16 08:11 94 Nasal Cannula 3.00 04/20/16 08:00 64 04/20/16 08:00 97.7 64 17 104/55 93 04/20/16 06:00 80 04/20/16 04:00 63 04/20/16 04:00 97.7 63 15 104/55 92 04/20/16 02:00 66 04/20/16 00:00 98.4 67 17 101/58 93 04/20/16 00:00 67 04/19/16 22:00 69 04/19/16 20:43 78 Nasal Cannula 3.00 04/19/16 20:00 98.5 73 18 136/64 94 04/19/16 20:00 73 04/19/16 18:00 79 04/19/16 16:00 98.0 76 21 119/71 94 04/19/16 16:00 76 04/19/16 14:00 80 04/19/16 04/19/16 04/20/16 15:00 23:00 07:00 Intake Total 2905 ml 1267 ml 1009 ml Output Total 975 ml 2245 ml 800 ml Balance 1930 ml -978 ml 209 ml Intake Oral 1000 ml 400 ml 400 ml IV Total 1905 ml 867 ml 609 ml Output Urine Total 975 ml 2245 ml 800 ml # Bowel Movements 2 0 0 . Laboratory Tests Test 04/19/16 04/20/16 04:00 03:45 White Blood Count 16.0 TH/MM3 21.8 TH/MM3 Red Blood Count 6.08 MIL/MM3 4.78 MIL/MM3 Hemoglobin 16.6 GM/DL 13.2 GM/DL Hematocrit 50.9 % 40.1 % Mean Corpuscular Volume 83.7 FL 84.0 FL Mean Corpuscular Hemoglobin 27.4 PG 27.7 PG Mean Corpuscular Hemoglobin 32.7 % 32.9 % Concent Red Cell Distribution Width 16.3 % 16.5 % Platelet Count 213 TH/MM3 158 TH/MM3 Mean Platelet Volume 8.8 FL 8.8 FL Neutrophils (%) (Auto) 75.0 % 86.6 % Lymphocytes (%) (Auto) 18.6 % 7.8 % Monocytes (%) (Auto) 3.2 % 5.4 % Eosinophils (%) (Auto) 2.6 % 0.0 % Basophils (%) (Auto) 0.6 % 0.2 % Neutrophils # (Auto) 12.0 TH/MM3 18.9 TH/MM3 Lymphocytes # (Auto) 3.0 TH/MM3 1.7 TH/MM3 Monocytes # (Auto) 0.5 TH/MM3 1.2 TH/MM3 Eosinophils # (Auto) 0.4 TH/MM3 0.0 TH/MM3 Basophils # (Auto) 0.1 TH/MM3 0.0 TH/MM3 CBC Comment DIFF FINAL DIFF FINAL Differential Comment Laboratory Tests Test 04/19/16 04/19/16 04/20/16 04:00 04:35 03:45 Sodium Level 143 MEQ/L 139 MEQ/L Potassium Level 4.1 MEQ/L 4.1 MEQ/L Chloride Level 108 MEQ/L 105 MEQ/L Carbon Dioxide Level 29.0 MEQ/L 28.4 MEQ/L Anion Gap 6 MEQ/L 6 MEQ/L Blood Urea Nitrogen 21 MG/DL 16 MG/DL Creatinine 0.88 MG/DL 0.77 MG/DL Estimat Glomerular Filtration 87 ML/MIN 101 ML/MIN Rate Random Glucose 130 MG/DL 131 MG/DL Calcium Level 8.9 MG/DL 8.6 MG/DL Magnesium Level 1.8 MG/DL 2.0 MG/DL Troponin I 0.02 NG/ML Lactic Acid Level 2.2 mmol/L 1.1 mmol/L Phosphorus Level 2.9 MG/DL Microbiology Date/Time Procedure Status Source Growth 04/19/16 04:30 Aerobic Blood Culture - Preliminary Resulted Blood Peripheral NO GROWTH IN 1 DAY 04/19/16 04:30 Anaerobic Blood Culture - Preliminary Resulted Blood Peripheral NO GROWTH IN 1 DAY 04/19/16 04:35 Aerobic Blood Culture - Preliminary Resulted Blood Peripheral NO GROWTH IN 1 DAY 04/19/16 04:35 Anaerobic Blood Culture - Preliminary Resulted Blood Peripheral NO GROWTH IN 1 DAY 04/19/16 10:20 Influenza Types A,B Antigen (GERI) - Final Complete Nasal Washing NEGATIVE FOR FLU A AND B ANTIGEN.... 04/19/16 10:20 Gram Stain - Final Resulted Sputum Expectorated Sputum 04/19/16 10:20 Sputum Culture Resulted Sputum Expectorated Sputum Pending 04/19/16 10:30 Legionella Antigen - Final Complete Urine Catheterized Urine PRESUMPTIVE NEGATIVE FOR LEGIONELLA P... 04/19/16 10:30 Streptococcus pneumoniae Antigen (M - Final Complete Urine Catheterized Urine PRESUMPTIVE NEGATIVE FOR STREPTOCOCCU... Imaging Lower Extremity Ultrasound 04/19/16 0000 Signed Impressions: Service Date/Time: April 17:37 - CONCLUSION: Negative for DVT Mane Steele MD FACR Chest X-Ray 04/19/16 0000 Signed Impressions: Service Date/Time: April 04:08 - CONCLUSION: 1. Interval development of probable pneumonia in the right midlung and right lower lobe. 2. Opacity in the right upper lobe is unchanged. 3. Recommend treatment and followup to resolution. Kaushik Littlejohn MD CT Angiography 04/19/16 0000 Signed Impressions: Service Date/Time: April 09:43 - CONCLUSION: Progressive areas of airspace consolidation identified within the right upper lobe, right middle lobe and right lower lobe. This is consistent with acute infection in the setting of background centrilobular emphysema and bronchiectasis within the right upper lobe. No evidence of PE.. Zita Salinas MD Physical Exam GENERAL: awake and alert, gets SOB easily. SKIN: Cool and moist. No generalized rash. HEENT: [place] conjunctivae. No scleral icterus. Moist oral mucosa. NECK: No JVD or lymphadenopathy. Supple, nontender, no meningeal signs. CARDIOVASCULAR: Distandt heart sounds, difficult to fully evaluate due to the diffuse rhonchi. RESPIRATORY: Diffuse rhonchi, worse on R than on L, increased vocal fremitus on R GASTROINTESTINAL: Abdomen soft, non-tender, nondistended. No hepato-splenomegaly , or palpable masses. No guarding. MUSCULOSKELETAL: Extremities without clubbing, cyanosis, or edema. No joint effusion, or edema noted. No calf tenderness. NEUROLOGICAL: Non-focal PSYCH: Anxious due to SOB, cooperative LINE: PIV with no evidence of infection Assessment & Plan Remarks IMPRESSION Extensive PNA on R, came from home, previously had PSAE, patient with COPD/ emphysema Chronic cavitary RUL lesion, previous bronch, Dec 2015 neg AFB, has Aspergillus of unclear significance, ?colonization COPD RECOMMENDATION Follow sputum C/S Continue IV Zosyn and Levaquin Will adjust Abx once C/S finalized Also on steroids Monitor progress Follow CBC Per RN, pulmonary planning on bronch I will check patient on Saturday Dr Garcia available this weekend if with questions or urgent ID issue D/W Migdalia Paez MD Apr 20, 2016 13:03
[2016-04-20] MEDS: traZODone HCL 100 MG TAB PO SCH (21:00)
[2016-04-20] MEDS: MIRTAZAPINE 15 MG TAB PO SCH (21:00)
[2016-04-20] MEDS: SODIUM CHLORIDE 0.9% FLUSH 5 ML FLUSH IV FLUSH PRN (23:06)
[2016-04-20] MEDS: oxyCODONE/ACETAMINOPHEN 7.5 MG/325 MG TAB PO PRN (23:06)
[2016-04-21] VITALS (11 sets, daily range): BP systolic 92–158; BP diastolic 55–105; PULSE 58–81; RESP 16–24; TEMP 97.4–98.9; O2SAT 89–100
[2016-04-21] MEDS: RESP: ALBUTEROL 2.5 MG/IPRATROPIUM 0.5 MG NEB (SCH) NEB ×6 (01:20→20:31)
[2016-04-21] MEDS: CHLORHEXIDINE GLUCONATE 2 % 1 PACK (2 CLOTHS) TOP SCH (04:00)
--- NOTE | 2016-04-21 04:53 | RADRPT ---
EXAM DATE/TIME: 04/21/2016 03:34 [place] COMPARISON: CHEST PA & LAT, December 25, 2015, 5:42. CHEST SINGLE AP, April 19, 2016, 4:08. INDICATIONS : Shortness of breath, possible pulmonary disease. MEDICAL HISTORY : Chronic obstructive pulmonary disease. Carcinoma, lung. SURGICAL HISTORY : None. ENCOUNTER: Subsequent ACUITY: 3 days PAIN SCORE: Non-responsive. LOCATION: Bilateral chest FINDINGS: The cardiac silhouette is normal in transverse diameter. There is patchy alveolar disease on the righ t compatible with edema or pneumonia. There has been no significant change when compared to the prior exam. The left lung is free of acute parenchymal opacity. CONCLUSION: Patchy alveolar disease characteristic of edema or pneumonia. There has been no significant change w hen compared to the prior exam. Leo Hernandez MD on April 21, 2016 at 4:51 Board Certified Radiologist. This report was verified electronically.
[2016-04-21] MEDS: HYDROCORTISONE SOD SUCCINATE 100 MG VIAL IV PUSH SCH ×4 (05:53→23:31)
[2016-04-21] MEDS: PIPERACIL-TAZO 4.5 GM PREMIX 100 ML IV SCH ×4 (05:53→20:46)
[2016-04-21] MEDS: oxyCODONE/ACETAMINOPHEN 7.5 MG/325 MG TAB PO PRN ×4 (05:54→23:31)
[2016-04-21 07:47] LABS: AUTOMATED NEUTROPHIL # 10.8 TH/MM3 (1.8-7.7); BASOPHIL % 0.1 % (0.0-2.0); EOSINOPHIL % 0.1 % (0.0-4.0); HEMATOCRIT 39.3 % (39.0-51.0); HEMO FLAGS DIFF FINAL; LYMPH % 12.8 % (9.0-44.0); LYMPHOCYTE # 1.7 TH/MM3 (1.0-4.8); MEAN CORPUSCULAR HEMOGLOBIN 27.6 PG (27.0-34.0); MEAN CORPUSCULAR HGB CONC 33.2 % (32.0-36.0); MONO % 4.4 % (0.0-8.0); NEUT % 82.6 % (16.0-70.0); PLATELET COUNT 173 TH/MM3 (150-450); RED BLOOD COUNT 4.73 MIL/MM3 (4.50-5.90); RED CELL DISTRIBUTION WIDTH 15.9 % (11.6-17.2)
[2016-04-21 08:16] LABS: BICARBONATE 29.4 MEQ/L (21.0-32.0); POTASSIUM 3.6 MEQ/L (3.5-5.1)
--- NOTE | 2016-04-21 08:36 | HHI.PR ---
Subjective Remarks in no acute distress. sitting on the chair- fairly comfortable. no fever. d/w the RN. Objective Vitals Vital Signs Date Time Temp Pulse Resp B/P Pulse Ox O2 Delivery O2 Flow Rate FiO2 04/21/16 08:08 94 Nasal Cannula 3.00 04/21/16 06:00 66 04/21/16 04:00 70 04/21/16 04:00 97.9 64 24 129/68 92 04/21/16 02:00 76 04/21/16 00:00 59 04/21/16 00:00 98.2 59 23 104/57 93 04/20/16 22:00 68 04/20/16 20:00 97.9 66 18 113/61 93 04/20/16 20:00 66 04/20/16 19:31 93 Nasal Cannula 3.00 04/20/16 18:00 65 04/20/16 16:53 30 04/20/16 16:00 97.8 68 19 112/68 92 04/20/16 16:00 68 04/20/16 14:00 77 04/20/16 12:00 71 04/20/16 12:00 98.0 71 19 107/55 91 04/20/16 11:01 17 04/20/16 10:00 83 I/O 04/20/16 04/20/16 04/20/16 04/21/16 04/21/16 04/21/16 07:00 15:00 23:00 07:00 15:00 23:00 Intake Total 1009 ml 1291 ml 573 ml 744 ml Output Total 800 ml 1950 ml 500 ml 600 ml Balance 209 ml -659 ml 73 ml 144 ml Intake Oral 400 ml 1000 ml 350 ml 700 ml IV Total 609 ml 291 ml 223 ml 44 ml Output Urine Total 800 ml 1950 ml 500 ml 600 ml # Bowel Movements 0 0 0 0 Result Diagram: 04/21/16 0620 04/21/16 0620 Imaging Last Impressions Chest X-Ray 04/21/16 0400 Signed Impressions: Service Date/Time: Thursday, April 21, 2016 03:34 - CONCLUSION: Patchy alveolar disease characteristic of edema or pneumonia. There has been no significant change when compared to the prior exam. Leo Hernandez MD Lower Extremity Ultrasound 04/19/16 0000 Signed Impressions: Service Date/Time: April 17:37 - CONCLUSION: Negative for DVT Mane Steele MD FACR CT Angiography 04/19/16 0000 Signed Impressions: Service Date/Time: April 09:43 - CONCLUSION: Progressive areas of airspace consolidation identified within the right upper lobe, right middle lobe and right lower lobe. This is consistent with acute infection in the setting of background centrilobular emphysema and bronchiectasis within the right upper lobe. No evidence of PE.. Ztia Salinas MD Objective Remarks GENERAL: This is a well-nourished, well-developed patient, in no apparent distress. CARDIOVASCULAR: Regular rate and regular rhythm without murmurs, gallops, or rubs. RESPIRATORY: diminished air entry in bases GASTROINTESTINAL: Abdomen soft, non-tender, nondistended. Normal, active bowel sounds MUSCULOSKELETAL: Extremities without clubbing, cyanosis, or edema. NEURO: Alert & Oriented x4 to person, place, time, situation. Moves all ext x4 Medications and IVs Current Medications IV Flush (NS Flush) 2 ml UNSCH PRN IVF FLUSH AFTER USING IV ACCESS; Start 04/19 at 04:00; Stop 04/20/16 at 13:05; Status DC Ondansetron HCl (Zofran Inj) 8 mg ONCE ONCE IV PUSH Last administered on 04:09; Start 04/19/16 at 04:00; Stop 04/19/16 at 04:01; Status DC Albuterol/ Ipratropium (Duoneb Neb) 1 ampule STK-MED ONCE .ROUTE Last administered on 04/19/16 04:03; Start 04/19/16 at 04:03; Stop 04/19/16 at 04:04 ; Status DC Albuterol/ Ipratropium (Duoneb Neb) 1 ampule STK-MED ONCE .ROUTE Last administered on 04/19/16 04:35; Start 04/19/16 at 04:04; Stop 04/19/16 at 04:05 ; Status DC Albuterol/ Ipratropium 1 ampule 1 ampule STK-MED ONCE .ROUTE ; Start 04/19/16 at 04:04; Stop 04/19/16 at 04:05; Status DC Vancomycin HCl 1000 mg/Sodium Chloride 250 ml @ 250 mls/hr ONCE ONCE IV Last administered on 04/19/16 05:45; Start 04/19/16 at 04:45; Stop 04/19/16 at 05:44 ; Status DC Piperacillin Sod/ Tazobactam Sod 100 ml @ 200 mls/hr ONCE ONCE IV Last administered on 04/19/16 05:00; Start 04/19/16 at 04:45; Stop 04/19/16 at 05:14 ; Status DC Sodium Chloride 1,000 ml @ 999 mls/hr BOLUS ONCE IV Last administered on 04/19 05:45; Start 04/19/16 at 05:00; Stop 04/19/16 at 06:00; Status DC Sodium Chloride (NS 1000 ml Inj) 1,000 ml @ 999 mls/hr BOLUS ONCE IV Last administered on 04/19/16 05:45; Start 04/19/16 at 05:00; Stop 04/19/16 at 06:00 ; Status DC Fluticasone Propionate (Flovent Hfa 110 Mcg Inh) 2 puff BID INH Last administered on 04/20/16 23:09; Start 04/19/16 at 09:00 Mirtazapine (Remeron) 15 mg HS PO Last administered on 04/20/16 21:00; Start 04/19/16 at 21:00 Trazodone HCl (Desyrel) 100 mg HS PO Last administered on 04/20/16 21:00; Start 04/19/16 at 21:00 Hydrocortisone Sodium Succinate 60 mg 60 mg Q6HR IV PUSH Last administered on 05:53; Start 04/19/16 at 06:00 Levofloxacin/ Dextrose (Levaquin 750 Mg Premix Inj) 150 ml @ 100 mls/hr Q24H IV Last administered on 04/20/16 04:30; Start 04/19/16 at 06:00; Stop at 12:59; Status DC Albuterol/ Ipratropium 1 ampule 1 ampule Q4HR NEB NEB Last administered on 08:06; Start 04/19/16 at 08:00 Sodium Chloride (NS 1000 ml Inj) 1,000 ml @ 84 mls/hr [id number] IV Last administered on 04/20/16 04:29; Start 04/19/16 at 05:47; Stop 04/20/16 at 09:12 ; Status DC IV Flush (NS Flush) 2 ml UNSCH PRN IV FLUSH FLUSH AFTER USING IV ACCESS Last administered on 04/20/16 23:06; Start 04/19/16 at 06:00 IV Flush (NS Flush) 2 ml BID IV FLUSH Last administered on 04/20/16 21:00; Start 04/19/16 at 09:00 Acetaminophen (Tylenol) 650 mg Q6H PRN PO PAIN 1-2 AND/OR FEVER >101F; Start at 06:00 Morphine Sulfate (Morphine Inj) 2 mg Q2H PRN IV PAIN SCALE 6 TO 10 Last administered on 04/20/16 10:55; Start 04/19/16 at 06:00; Stop 04/20/16 at 11:49 ; Status DC Famotidine (Pepcid) 20 mg Q12HR PO Last administered on 04/20/16 21:00; Start 04/19/16 at 09:00 Ondansetron HCl (Zofran Inj) 4 mg Q6H PRN IV NAUSEA OR VOMITING; Start at 10:00 Heparin Sodium (Porcine) (Heparin Inj) 5,000 units Q12HR SQ Last administered on 04/20/16 21:00; Start 04/19/16 at 09:00 Miscellaneous Information 1 Q361D XX Last administered on 04/19/16 06:00; Start 04/19/16 at 06:00 Chlorhexidine Gluconate (Chlorhexidine 2% Cloth) 3 pack Taper DAILY@04 TOP Last administered on 04/21/16 04:00; Start 04/20/16 at 04:00; Stop 04/16/17 at 03:59 Chlorhexidine Gluconate (Chlorhexidine 2% Cloth) 3 pack UNSCH PRN TOP HYGIENIC CARE; Start 04/19/16 at 06:00 Iohexol (Omnipaque 350 Inj) 74 ml STK-MED ONCE IV Last administered on 09:48; Start 04/19/16 at 09:48; Stop 04/19/16 at 09:49; Status DC Iohexol 100 ml 100 ml STK-MED ONCE IV ; Start 04/19/16 at 10:22; Stop 04/19/16 at 10:23; Status Cancel Piperacillin Sod/ Tazobactam Sod (Zosyn 4.5 Gm Premix) 100 ml @ 200 mls/hr Q6H IV Last administered on 04/21/16 05:53; Start 04/19/16 at 16:00 Oxycodone/ Acetaminophen (Percocet 5-325 Mg) 1 tab Q6H PRN PO pain 3-10 Last administered on 04/20/16 15:53; Start 04/20/16 at 11:15; Stop 04/20/16 at 22:06 ; Status DC Levofloxacin (Levaquin) 750 mg DAILY PO ; Start 04/21/16 at 09:00 Oxycodone/ Acetaminophen (Percocet 7.5-325 Mg) 2 tab Q6H PRN PO PAIN SCALE 3- 10 Last administered on 04/21/16 05:54; Start 04/20/16 at 22:15 A/P Assessment and Plan A/P - acute hypoxic respiratory failure due to COPD exacerbation/ pneumonia keep on oxygen to keep O2 sat > 90%- continue with IV antibiotics per ID recommendations- on neb treatment and IV steroids- pulmonary following. -DVT/ GI prophylaxis with subq heparin and pepcid will transfer to telemetry soon if remains stable. Robbin Gonzalez MD Apr 21, 2016 08:36
[2016-04-21] MEDS: FAMOTIDINE 20 MG TAB PO SCH ×2 (08:42→20:45)
[2016-04-21] MEDS: SODIUM CHLORIDE 0.9% FLUSH 5 ML FLUSH IV FLUSH SCH ×2 (08:42→20:46)
[2016-04-21] MEDS: FLUTICASONE PROPIONATE 110 MCG/ACT 12 GM INHALER INH SCH ×2 (08:42→20:59)
[2016-04-21] MEDS: LEVOFLOXACIN 750 MG TAB PO SCH (08:42)
[2016-04-21] MEDS: HEPARIN SODIUM - SQ 10,000 UNITS/ML VIAL SQ SCH ×2 (08:42→20:45)
--- NOTE | 2016-04-21 17:44 | HHI.PR ---
Subjective Remarks 65 YOWM with H/O COPD,PE admitted with Hypoxic RF Feels much better Has worsening infilt Breathing better On NC Objective Vital Signs Vital Signs Date Time Temp Pulse Resp B/P Pulse Ox O2 Delivery O2 Flow Rate FiO2 04/21/16 16:00 97.6 63 18 115/60 93 04/21/16 12:00 97.8 59 24 110/56 92 04/21/16 08:08 94 Nasal Cannula 3.00 04/21/16 08:00 97.4 58 19 124/69 89 04/21/16 06:00 66 04/21/16 04:00 70 04/21/16 04:00 97.9 64 24 129/68 92 04/21/16 02:00 76 04/21/16 00:00 59 04/21/16 00:00 98.2 59 23 104/57 93 04/20/16 22:00 68 04/20/16 20:00 97.9 66 18 113/61 93 04/20/16 20:00 66 04/20/16 19:31 93 Nasal Cannula 3.00 04/20/16 18:00 65 I/O 04/20/16 04/20/16 04/20/16 04/21/16 04/21/16 04/21/16 07:00 15:00 23:00 07:00 15:00 23:00 Intake Total 1009 ml 1291 ml 573 ml 744 ml 700 ml Output Total 800 ml 1950 ml 500 ml 600 ml 1000 ml Balance 209 ml -659 ml 73 ml 144 ml -300 ml Intake Oral 400 ml 1000 ml 350 ml 700 ml 600 ml IV Total 609 ml 291 ml 223 ml 44 ml 100 ml Output Urine Total 800 ml 1950 ml 500 ml 600 ml 1000 ml # Bowel Movements 0 0 0 0 0 Result Diagram: 04/21/1661904/21/16619 Objective Remarks GENERAL: WBWN Wm,NAD SKIN: Warm and dry. HEAD: Normocephalic. EYES: No scleral icterus. No injection or drainage. NECK: Supple, trachea midline. No JVD or lymphadenopathy. CARDIOVASCULAR: Regular rate and rhythm without murmurs, gallops, or rubs. RESPIRATORY: Breath sounds equal bilaterally. No accessory muscle use. GASTROINTESTINAL: Abdomen soft, non-tender, nondistended. MUSCULOSKELETAL: No cyanosis, or edema. BACK: Nontender without obvious deformity. No CVA tenderness. A/P Assessment and Plan Hypoxic RF improved Pneumonia COPD H/O PE Nasal congestion PLAN: Supplement 02 Abx Levaquin and Zosyn Aerosol nebs Flonase NS Bronch planned for Saturday Jefferson Barron MD Apr 21, 2016 17:43
[2016-04-21] MEDS: FLUTICASONE PROPIONATE 50 MCG/ACT 16 GM NASAL SPRAY NASAL SCH (18:16)
[2016-04-21] MEDS: traZODone HCL 100 MG TAB PO SCH (20:45)
[2016-04-21] MEDS: MIRTAZAPINE 15 MG TAB PO SCH (20:45)
[2016-04-22] VITALS (10 sets, daily range): BP systolic 111–178; BP diastolic 65–88; PULSE 57–98; RESP 18–28; TEMP 97–98.3; O2SAT 89–99
[2016-04-22] MEDS: PIPERACIL-TAZO 4.5 GM PREMIX 100 ML IV SCH ×4 (03:38→22:04)
[2016-04-22] MEDS: RESP: ALBUTEROL 2.5 MG/IPRATROPIUM 0.5 MG NEB (SCH) NEB ×5 (03:41→20:33)
[2016-04-22] MEDS: CHLORHEXIDINE GLUCONATE 2 % 1 PACK (2 CLOTHS) TOP SCH (04:00)
[2016-04-22] MEDS: HYDROCORTISONE SOD SUCCINATE 100 MG VIAL IV PUSH SCH ×3 (05:00→18:03)
[2016-04-22] MEDS: oxyCODONE/ACETAMINOPHEN 7.5 MG/325 MG TAB PO PRN ×3 (05:46→18:08)
[2016-04-22] MEDS: SODIUM CHLORIDE 0.9% FLUSH 5 ML FLUSH IV FLUSH SCH ×2 (08:47→20:11)
[2016-04-22] MEDS: HEPARIN SODIUM - SQ 10,000 UNITS/ML VIAL SQ SCH ×2 (08:47→20:11)
[2016-04-22] MEDS: FLUTICASONE PROPIONATE 110 MCG/ACT 12 GM INHALER INH SCH ×2 (08:47→20:42)
[2016-04-22] MEDS: LEVOFLOXACIN 750 MG TAB PO SCH (08:47)
[2016-04-22] MEDS: FAMOTIDINE 20 MG TAB PO SCH ×2 (08:47→20:11)
[2016-04-22] MEDS: FLUTICASONE PROPIONATE 50 MCG/ACT 16 GM NASAL SPRAY NASAL SCH (08:47)
--- NOTE | 2016-04-22 10:00 | HHI.PR ---
Subjective Remarks sitting on the bed with no distress. is fairly comfortable. has occasional dry cough. no fever. d/w the RN and no acute issues over night. Objective Vitals Vital Signs Date Time Temp Pulse Resp B/P Pulse Ox O2 Delivery O2 Flow Rate FiO2 04/22/16 08:13 Nasal Cannula 3.00 04/22/16 08:00 98 04/22/16 06:46 20 04/22/16 06:00 62 04/22/16 04:00 98 04/22/16 04:00 97.7 98 28 118/65 89 04/22/16 02:00 96 04/22/16 00:00 94 04/22/16 00:00 97.7 57 20 113/78 94 04/21/16 22:00 64 04/21/16 20:31 96 Nasal Cannula 3.00 04/21/16 20:00 97.6 70 16 145/68 92 04/21/16 20:00 75 04/21/16 16:00 97.6 63 18 115/60 93 04/21/16 12:00 97.8 59 24 110/56 92 I/O 04/21/16 04/21/16 04/21/16 04/22/16 04/22/16 04/22/16 07:00 15:00 23:00 07:00 15:00 23:00 Intake Total 744 ml 700 ml 540 ml 820 ml Output Total 600 ml 1000 ml 1000 ml 500 ml Balance 144 ml -300 ml -460 ml 320 ml Intake Oral 700 ml 600 ml 440 ml 720 ml IV Total 44 ml 100 ml 100 ml 100 ml Output Urine Total 600 ml 1000 ml 1000 ml 500 ml # Voids 2 1 # Bowel Movements 0 0 Result Diagram: 04/21/16 0620 04/21/16 0620 Imaging Last Impressions Chest X-Ray 04/21/16 0400 Signed Impressions: Service Date/Time: Thursday, April 21, 2016 03:34 - CONCLUSION: Patchy alveolar disease characteristic of edema or pneumonia. There has been no significant change when compared to the prior exam. Leo Hernandez MD Lower Extremity Ultrasound 04/19/16 0000 Signed Impressions: Service Date/Time: April 17:37 - CONCLUSION: Negative for DVT Mane Steele MD FACR CT Angiography 04/19/16 0000 Signed Impressions: Service Date/Time: April 09:43 - CONCLUSION: Progressive areas of airspace consolidation identified within the right upper lobe, right middle lobe and right lower lobe. This is consistent with acute infection in the setting of background centrilobular emphysema and bronchiectasis within the right upper lobe. No evidence of PE.. Zita Salinsa MD Objective Remarks GENERAL: This is a well-nourished, well-developed patient, in no apparent distress. CARDIOVASCULAR: Regular rate and regular rhythm without murmurs, gallops, or rubs. RESPIRATORY: diminished air entry in bases GASTROINTESTINAL: Abdomen soft, non-tender, nondistended. Normal, active bowel sounds MUSCULOSKELETAL: Extremities without clubbing, cyanosis, or edema. NEURO: Alert & Oriented x4 to person, place, time, situation. Moves all ext x4 Medications and IVs Current Medications IV Flush (NS Flush) 2 ml UNSCH PRN IVF FLUSH AFTER USING IV ACCESS; Start 04/19 at 04:00; Stop 04/20/16 at 13:05; Status DC Ondansetron HCl (Zofran Inj) 8 mg ONCE ONCE IV PUSH Last administered on 04:09; Start 04/19/16 at 04:00; Stop 04/19/16 at 04:01; Status DC Albuterol/ Ipratropium (Duoneb Neb) 1 ampule STK-MED ONCE .ROUTE Last administered on 04/19/16 04:03; Start 04/19/16 at 04:03; Stop 04/19/16 at 04:04 ; Status DC Albuterol/ Ipratropium (Duoneb Neb) 1 ampule STK-MED ONCE .ROUTE Last administered on 04/19/16 04:35; Start 04/19/16 at 04:04; Stop 04/19/16 at 04:05 ; Status DC Albuterol/ Ipratropium 1 ampule 1 ampule STK-MED ONCE .ROUTE ; Start 04/19/16 at 04:04; Stop 04/19/16 at 04:05; Status DC Vancomycin HCl 1000 mg/Sodium Chloride 250 ml @ 250 mls/hr ONCE ONCE IV Last administered on 04/19/16 05:45; Start 04/19/16 at 04:45; Stop 04/19/16 at 05:44 ; Status DC Piperacillin Sod/ Tazobactam Sod 100 ml @ 200 mls/hr ONCE ONCE IV Last administered on 04/19/16 05:00; Start 04/19/16 at 04:45; Stop 04/19/16 at 05:14 ; Status DC Sodium Chloride 1,000 ml @ 999 mls/hr BOLUS ONCE IV Last administered on 04/19 05:45; Start 04/19/16 at 05:00; Stop 04/19/16 at 06:00; Status DC Sodium Chloride (NS 1000 ml Inj) 1,000 ml @ 999 mls/hr BOLUS ONCE IV Last administered on 04/19/16 05:45; Start 04/19/16 at 05:00; Stop 04/19/16 at 06:00 ; Status DC Fluticasone Propionate (Flovent Hfa 110 Mcg Inh) 2 puff BID INH Last administered on 04/22/16 08:47; Start 04/19/16 at 09:00 Mirtazapine (Remeron) 15 mg HS PO Last administered on 04/21/16 20:45; Start 04/19/16 at 21:00 Trazodone HCl (Desyrel) 100 mg HS PO Last administered on 04/21/16 20:45; Start 04/19/16 at 21:00 Hydrocortisone Sodium Succinate 60 mg 60 mg Q6HR IV PUSH Last administered on 05:00; Start 04/19/16 at 06:00 Levofloxacin/ Dextrose (Levaquin 750 Mg Premix Inj) 150 ml @ 100 mls/hr Q24H IV Last administered on 04/20/16 04:30; Start 04/19/16 at 06:00; Stop at 12:59; Status DC Albuterol/ Ipratropium 1 ampule 1 ampule Q4HR NEB NEB Last administered on 08:11; Start 04/19/16 at 08:00 Sodium Chloride (NS 1000 ml Inj) 1,000 ml @ 84 mls/hr [id number] IV Last administered on 04/20/16 04:29; Start 04/19/16 at 05:47; Stop 04/20/16 at 09:12 ; Status DC IV Flush (NS Flush) 2 ml UNSCH PRN IV FLUSH FLUSH AFTER USING IV ACCESS Last administered on 04/20/16 23:06; Start 04/19/16 at 06:00 IV Flush (NS Flush) 2 ml BID IV FLUSH Last administered on 04/21/16 20:46; Start 04/19/16 at 09:00 Acetaminophen (Tylenol) 650 mg Q6H PRN PO PAIN 1-2 AND/OR FEVER >101F; Start at 06:00 Morphine Sulfate (Morphine Inj) 2 mg Q2H PRN IV PAIN SCALE 6 TO 10 Last administered on 04/20/16 10:55; Start 04/19/16 at 06:00; Stop 04/20/16 at 11:49 ; Status DC Famotidine (Pepcid) 20 mg Q12HR PO Last administered on 04/22/16 08:47; Start 04/19/16 at 09:00 Ondansetron HCl (Zofran Inj) 4 mg Q6H PRN IV NAUSEA OR VOMITING; Start at 10:00 Heparin Sodium (Porcine) (Heparin Inj) 5,000 units Q12HR SQ Last administered on 04/22/16 08:47; Start 04/19/16 at 09:00 Miscellaneous Information 1 Q361D XX Last administered on 04/19/16 06:00; Start 04/19/16 at 06:00 Chlorhexidine Gluconate (Chlorhexidine 2% Cloth) 3 pack Taper DAILY@04 TOP Last administered on 04/22/16 04:00; Start 04/20/16 at 04:00; Stop 04/16/17 at 03:59 Chlorhexidine Gluconate (Chlorhexidine 2% Cloth) 3 pack UNSCH PRN TOP HYGIENIC CARE; Start 04/19/16 at 06:00 Iohexol (Omnipaque 350 Inj) 74 ml STK-MED ONCE IV Last administered on 09:48; Start 04/19/16 at 09:48; Stop 04/19/16 at 09:49; Status DC Iohexol 100 ml 100 ml STK-MED ONCE IV ; Start 04/19/16 at 10:22; Stop 04/19/16 at 10:23; Status Cancel Piperacillin Sod/ Tazobactam Sod (Zosyn 4.5 Gm Premix) 100 ml @ 200 mls/hr Q6H IV Last administered on 04/22/16 03:38; Start 04/19/16 at 16:00 Oxycodone/ Acetaminophen (Percocet 5-325 Mg) 1 tab Q6H PRN PO pain 3-10 Last administered on 04/20/16 15:53; Start 04/20/16 at 11:15; Stop 04/20/16 at 22:06 ; Status DC Levofloxacin (Levaquin) 750 mg DAILY PO Last administered on 04/22/16 08:47; Start 04/21/16 at 09:00 Oxycodone/ Acetaminophen (Percocet 7.5-325 Mg) 2 tab Q6H PRN PO PAIN SCALE 3- 10 Last administered on 04/22/16 05:46; Start 04/20/16 at 22:15 Albuterol/ Ipratropium (Duoneb Neb) 1 ampule Q2HR NEB PRN NEB SHORTNESS OF BREATH; Start 04/21/16 at 12:00 Fluticasone Propionate (Flonase Elias Spr) 2 spray DAILY NASAL Last administered on 04/22/16 08:47; Start 04/21/16 at 17:30 A/P Assessment and Plan A/P - acute hypoxic respiratory failure due to COPD exacerbation/ pneumonia keep on oxygen to keep O2 sat > 90%- continue with IV antibiotics per ID recommendations- on neb treatment and IV steroids- sputum culture with gram negative pura. pulmonary following. -DVT/ GI prophylaxis with subq heparin and pepcid transfer to telemetry. d/w the Robbin Menjivar MD Apr 22, 2016 10:00
--- NOTE | 2016-04-22 18:45 | HHI.PR ---
Subjective Remarks 65 YOWM with H/O COPD,PE admitted with Hypoxic RF Feels much better Has worsening infilt Breathing better On NC Has cough and congestion Objective Vital Signs Vital Signs Date Time Temp Pulse Resp B/P Pulse Ox O2 Delivery O2 Flow Rate FiO2 04/22/16 14:30 97.0 69 18 152/79 97 04/22/16 13:22 18 04/22/16 12:00 94 04/22/16 12:00 97.7 98 20 111/68 94 04/22/16 10:00 62 04/22/16 08:13 Nasal Cannula 3.00 04/22/16 08:00 98 04/22/16 08:00 98.3 68 20 116/75 94 04/22/16 06:00 62 04/22/16 04:00 98 04/22/16 04:00 97.7 98 28 118/65 89 04/22/16 02:00 96 04/22/16 00:00 94 04/22/16 00:00 97.7 57 20 113/78 94 04/21/16 22:00 64 04/21/16 20:31 96 Nasal Cannula 3.00 04/21/16 20:00 97.6 70 16 145/68 92 04/21/16 20:00 75 I/O 04/21/16 04/21/16 04/21/16 04/22/16 04/22/16 04/22/16 07:00 15:00 23:00 07:00 15:00 23:00 Intake Total 744 ml 700 ml 540 ml 820 ml 0 ml Output Total 600 ml 1000 ml 1000 ml 500 ml Balance 144 ml -300 ml -460 ml 320 ml 0 ml Intake Oral 700 ml 600 ml 440 ml 720 ml IV Total 44 ml 100 ml 100 ml 100 ml 0 ml Output Urine Total 600 ml 1000 ml 1000 ml 500 ml # Voids 2 1 # Bowel Movements 0 0 Result Diagram: 04/21/1661904/21/16619 Objective Remarks GENERAL: WBWN Wm,NAD SKIN: Warm and dry. HEAD: Normocephalic. EYES: No scleral icterus. No injection or drainage. NECK: Supple, trachea midline. No JVD or lymphadenopathy. CARDIOVASCULAR: Regular rate and rhythm without murmurs, gallops, or rubs. RESPIRATORY: Breath sounds equal bilaterally. No accessory muscle use. GASTROINTESTINAL: Abdomen soft, non-tender, nondistended. MUSCULOSKELETAL: No cyanosis, or edema. BACK: Nontender without obvious deformity. No CVA tenderness. A/P Assessment and Plan Hypoxic RF improved Pneumonia COPD H/O PE Nasal congestion PLAN: Supplement 02 Abx Levaquin and Zosyn Aerosol nebs Flonase NS Bronch planned for Saturday will FU in AM Jefferson Barron MD Apr 22, 2016 18:45
[2016-04-22] MEDS: MIRTAZAPINE 15 MG TAB PO SCH (20:11)
[2016-04-22] MEDS: traZODone HCL 100 MG TAB PO SCH (20:11)
[2016-04-23] VITALS (9 sets, daily range): BP systolic 117–137; BP diastolic 40–74; PULSE 58–83; RESP 16–20; TEMP 97.2–98.4; O2SAT 93–97
[2016-04-23] MEDS: RESP: ALBUTEROL 2.5 MG/IPRATROPIUM 0.5 MG NEB (SCH) NEB ×6 (00:03→20:09)
[2016-04-23] MEDS: HYDROCORTISONE SOD SUCCINATE 100 MG VIAL IV PUSH SCH ×4 (00:04→18:08)
[2016-04-23] MEDS: oxyCODONE/ACETAMINOPHEN 7.5 MG/325 MG TAB PO PRN ×4 (00:06→18:30)
[2016-04-23] MEDS: PIPERACIL-TAZO 4.5 GM PREMIX 100 ML IV SCH ×4 (04:00→21:15)
[2016-04-23] MEDS: CHLORHEXIDINE GLUCONATE 2 % 1 PACK (2 CLOTHS) TOP SCH (04:00)
[2016-04-23] MEDS: FAMOTIDINE 20 MG TAB PO SCH ×2 (08:12→21:14)
[2016-04-23] MEDS: HEPARIN SODIUM - SQ 10,000 UNITS/ML VIAL SQ SCH ×2 (08:12→21:15)
[2016-04-23] MEDS: LEVOFLOXACIN 750 MG TAB PO SCH (08:12)
[2016-04-23] MEDS: FLUTICASONE PROPIONATE 110 MCG/ACT 12 GM INHALER INH SCH ×2 (08:15→21:15)
[2016-04-23] MEDS: SODIUM CHLORIDE 0.9% FLUSH 5 ML FLUSH IV FLUSH SCH ×2 (08:16→21:00)
[2016-04-23] MEDS: FLUTICASONE PROPIONATE 50 MCG/ACT 16 GM NASAL SPRAY NASAL SCH (09:00)
--- NOTE | 2016-04-23 10:53 | HHI.PR ---
Subjective Remarks resting comfortably with no distress. has occasional cough. no fever. d/w the RN and no acute issues over night. Objective Vitals Vital Signs Date Time Temp Pulse Resp B/P Pulse Ox O2 Delivery O2 Flow Rate FiO2 04/23/16 08:00 83 04/23/16 07:56 97.5 59 20 119/67 95 04/23/16 07:55 96 Nasal Cannula 3.00 04/23/16 04:00 97.4 70 18 130/40 93 04/23/16 00:00 98.4 60 18 130/70 93 04/22/16 20:35 97 Nasal Cannula 3.00 04/22/16 20:00 64 04/22/16 20:00 98.1 66 20 140/75 96 04/22/16 14:30 97.0 69 18 152/79 97 04/22/16 13:22 18 04/22/16 12:00 94 04/22/16 12:00 97.7 98 20 111/68 94 I/O 04/22/16 04/22/16 04/22/16 04/23/16 04/23/16 04/23/16 07:00 15:00 23:00 07:00 15:00 23:00 Intake Total 820 ml 0 ml 240 ml 680 ml Output Total 500 ml 300 ml Balance 320 ml 0 ml -60 ml 680 ml Intake Oral 720 ml 240 ml 680 ml IV Total 100 ml 0 ml Output Urine Total 500 ml 300 ml # Voids 1 2 Result Diagram: 04/21/16 0620 04/21/16 0620 Imaging Last Impressions Chest X-Ray 04/21/16 0400 Signed Impressions: Service Date/Time: Thursday, April 21, 2016 03:34 - CONCLUSION: Patchy alveolar disease characteristic of edema or pneumonia. There has been no significant change when compared to the prior exam. Leo Hernandez MD Lower Extremity Ultrasound 04/19/16 0000 Signed Impressions: Service Date/Time: April 17:37 - CONCLUSION: Negative for DVT Mane Steele MD FACR CT Angiography 04/19/16 0000 Signed Impressions: Service Date/Time: April 09:43 - CONCLUSION: Progressive areas of airspace consolidation identified within the right upper lobe, right middle lobe and right lower lobe. This is consistent with acute infection in the setting of background centrilobular emphysema and bronchiectasis within the right upper lobe. No evidence of PE.. Zita Salinas MD Objective Remarks GENERAL: This is a well-nourished, well-developed patient, in no apparent distress. CARDIOVASCULAR: Regular rate and regular rhythm without murmurs, gallops, or rubs. RESPIRATORY: diminished air entry in bases GASTROINTESTINAL: Abdomen soft, non-tender, nondistended. Normal, active bowel sounds MUSCULOSKELETAL: Extremities without clubbing, cyanosis, or edema. NEURO: Alert & Oriented x4 to person, place, time, situation. Moves all ext x4 Medications and IVs Current Medications IV Flush (NS Flush) 2 ml UNSCH PRN IVF FLUSH AFTER USING IV ACCESS; Start 04/19 at 04:00; Stop 04/20/16 at 13:05; Status DC Ondansetron HCl (Zofran Inj) 8 mg ONCE ONCE IV PUSH Last administered on 04:09; Start 04/19/16 at 04:00; Stop 04/19/16 at 04:01; Status DC Albuterol/ Ipratropium (Duoneb Neb) 1 ampule STK-MED ONCE .ROUTE Last administered on 04/19/16 04:03; Start 04/19/16 at 04:03; Stop 04/19/16 at 04:04 ; Status DC Albuterol/ Ipratropium (Duoneb Neb) 1 ampule STK-MED ONCE .ROUTE Last administered on 04/19/16 04:35; Start 04/19/16 at 04:04; Stop 04/19/16 at 04:05 ; Status DC Albuterol/ Ipratropium 1 ampule 1 ampule STK-MED ONCE .ROUTE ; Start 04/19/16 at 04:04; Stop 04/19/16 at 04:05; Status DC Vancomycin HCl 1000 mg/Sodium Chloride 250 ml @ 250 mls/hr ONCE ONCE IV Last administered on 04/19/16 05:45; Start 04/19/16 at 04:45; Stop 04/19/16 at 05:44 ; Status DC Piperacillin Sod/ Tazobactam Sod 100 ml @ 200 mls/hr ONCE ONCE IV Last administered on 04/19/16 05:00; Start 04/19/16 at 04:45; Stop 04/19/16 at 05:14 ; Status DC Sodium Chloride 1,000 ml @ 999 mls/hr BOLUS ONCE IV Last administered on 04/19 05:45; Start 04/19/16 at 05:00; Stop 04/19/16 at 06:00; Status DC Sodium Chloride (NS 1000 ml Inj) 1,000 ml @ 999 mls/hr BOLUS ONCE IV Last administered on 04/19/16 05:45; Start 04/19/16 at 05:00; Stop 04/19/16 at 06:00 ; Status DC Fluticasone Propionate (Flovent Hfa 110 Mcg Inh) 2 puff BID INH Last administered on 04/23/16 08:15; Start 04/19/16 at 09:00 Mirtazapine (Remeron) 15 mg HS PO Last administered on 04/22/16 20:11; Start 04/19/16 at 21:00 Trazodone HCl (Desyrel) 100 mg HS PO Last administered on 04/22/16 20:11; Start 04/19/16 at 21:00 Hydrocortisone Sodium Succinate 60 mg 60 mg Q6HR IV PUSH Last administered on 06:09; Start 04/19/16 at 06:00 Levofloxacin/ Dextrose (Levaquin 750 Mg Premix Inj) 150 ml @ 100 mls/hr Q24H IV Last administered on 04/20/16 04:30; Start 04/19/16 at 06:00; Stop at 12:59; Status DC Albuterol/ Ipratropium 1 ampule 1 ampule Q4HR NEB NEB Last administered on 07:53; Start 04/19/16 at 08:00; Stop 04/23/16 at 08:00; Status DC Sodium Chloride (NS 1000 ml Inj) 1,000 ml @ 84 mls/hr [id number] IV Last administered on 04/20/16 04:29; Start 04/19/16 at 05:47; Stop 04/20/16 at 09:12 ; Status DC IV Flush (NS Flush) 2 ml UNSCH PRN IV FLUSH FLUSH AFTER USING IV ACCESS Last administered on 04/20/16 23:06; Start 04/19/16 at 06:00 IV Flush (NS Flush) 2 ml BID IV FLUSH Last administered on 04/23/16 08:16; Start 04/19/16 at 09:00 Acetaminophen (Tylenol) 650 mg Q6H PRN PO PAIN 1-2 AND/OR FEVER >101F; Start at 06:00 Morphine Sulfate (Morphine Inj) 2 mg Q2H PRN IV PAIN SCALE 6 TO 10 Last administered on 04/20/16 10:55; Start 04/19/16 at 06:00; Stop 04/20/16 at 11:49 ; Status DC Famotidine (Pepcid) 20 mg Q12HR PO Last administered on 04/23/16 08:12; Start 04/19/16 at 09:00 Ondansetron HCl (Zofran Inj) 4 mg Q6H PRN IV NAUSEA OR VOMITING; Start at 10:00 Heparin Sodium (Porcine) (Heparin Inj) 5,000 units Q12HR SQ Last administered on 04/23/16 08:12; Start 04/19/16 at 09:00 Miscellaneous Information 1 [id number] Last administered on 04/19/16 06:00; Start 04/19/16 at 06:00 Chlorhexidine Gluconate (Chlorhexidine 2% Cloth) 3 pack Taper DAILY@04 TOP Last administered on 04/22/16 04:00; Start 04/20/16 at 04:00; Stop 04/16/17 at 03:59 Chlorhexidine Gluconate (Chlorhexidine 2% Cloth) 3 pack UNSCH PRN TOP HYGIENIC CARE; Start 04/19/16 at 06:00 Iohexol (Omnipaque 350 Inj) 74 ml STK-MED ONCE IV Last administered on 09:48; Start 04/19/16 at 09:48; Stop 04/19/16 at 09:49; Status DC Iohexol 100 ml 100 ml STK-MED ONCE IV ; Start 04/19/16 at 10:22; Stop 04/19/16 at 10:23; Status Cancel Piperacillin Sod/ Tazobactam Sod (Zosyn 4.5 Gm Premix) 100 ml @ 200 mls/hr Q6H IV Last administered on 04/23/16 09:30; Start 04/19/16 at 16:00 Oxycodone/ Acetaminophen (Percocet 5-325 Mg) 1 tab Q6H PRN PO pain 3-10 Last administered on 04/20/16 15:53; Start 04/20/16 at 11:15; Stop 04/20/16 at 22:06 ; Status DC Levofloxacin (Levaquin) 750 mg DAILY PO Last administered on 04/23/16 08:12; Start 04/21/16 at 09:00 Oxycodone/ Acetaminophen (Percocet 7.5-325 Mg) 2 tab Q6H PRN PO PAIN SCALE 3- 10 Last administered on 04/23/16 06:10; Start 04/20/16 at 22:15 Albuterol/ Ipratropium (Duoneb Neb) 1 ampule Q2HR NEB PRN NEB SHORTNESS OF BREATH; Start 04/21/16 at 12:00 Fluticasone Propionate (Flonase Elias Spr) 2 spray DAILY NASAL Last administered on 04/23/16 09:00; Start 04/21/16 at 17:30 A/P Assessment and Plan A/P - acute hypoxic respiratory failure due to COPD exacerbation/ pneumonia keep on oxygen to keep O2 sat > 90%- continue with IV antibiotics per ID recommendations- on neb treatment and IV steroids- sputum culture with pseudomonas. pulmonary following; for possible bronchoscopy. -DVT/ GI prophylaxis with subq heparin and pepcid d/w the Robbin Menjivar MD Apr 23, 2016 10:53
--- NOTE | 2016-04-23 16:11 | HHI.IDPN ---
Subjective Subjective Remarks Notes reviewed Temps ok Looks better On nasal O2 Still bringing up a lot of phlegm, usually blood tinged On 3L O2 NC MTB PCR negative Legio and Pneumo Ag neg Influenza neg Sputum C/S PSAE WBC better Antibiotics Zosyn Lines PIV Past Medical History Reviewed Allergies: Uncoded Allergies: PERFUMES/COLOGNES (Adverse Reaction, Intermediate, Wheezing, 01/23/16) SOB/DIFFICULTY BREATHING Objective . Vital Signs Date Time Temp Pulse Resp B/P Pulse Ox O2 Delivery O2 Flow Rate FiO2 04/23/16 11:45 97.2 63 20 124/62 96 04/23/16 08:00 83 04/23/16 07:56 97.5 59 20 119/67 95 04/23/16 07:55 96 Nasal Cannula 3.00 04/23/16 04:00 97.4 70 18 130/40 93 04/23/16 00:00 98.4 60 18 130/70 93 04/22/16 20:35 97 Nasal Cannula 3.00 04/22/16 20:00 64 04/22/16 20:00 98.1 66 20 140/75 96 04/22/16 04/22/16 04/23/16 15:00 23:00 07:00 Intake Total 0 ml 240 ml 680 ml Output Total 300 ml Balance 0 ml -60 ml 680 ml Intake Oral 240 ml 680 ml IV Total 0 ml Output Urine Total 300 ml # Voids 2 Imaging Lower Extremity Ultrasound 04/19/16 0000 Signed Impressions: Service Date/Time: April 17:37 - CONCLUSION: Negative for DVT Mane Steele MD FACR Chest X-Ray 04/19/16 0000 Signed Impressions: Service Date/Time: April 04:08 - CONCLUSION: 1. Interval development of probable pneumonia in the right midlung and right lower lobe. 2. Opacity in the right upper lobe is unchanged. 3. Recommend treatment and followup to resolution. Kaushik Littlejohn MD CT Angiography 04/19/16 0000 Signed Impressions: Service Date/Time: April 09:43 - CONCLUSION: Progressive areas of airspace consolidation identified within the right upper lobe, right middle lobe and right lower lobe. This is consistent with acute infection in the setting of background centrilobular emphysema and bronchiectasis within the right upper lobe. No evidence of PE.. Zita Salinas MD Physical Exam GENERAL: awake and alert, NAD SKIN: Cool and moist. No generalized rash. HEENT: [place] conjunctivae. No scleral icterus. Moist oral mucosa. NECK: Supple, nontender, no meningeal signs. CARDIOVASCULAR: Distant heart sounds, difficult to fully evaluate due to the diffuse rhonchi. RESPIRATORY: Decreased BS R side, few wheezing GASTROINTESTINAL: Abdomen soft, non-tender, nondistended. No hepato-splenomegaly , or palpable masses. No guarding. MUSCULOSKELETAL: Extremities without clubbing, cyanosis, or edema. No calf tenderness. NEUROLOGICAL: Non-focal PSYCH: Calm and cooperative LINE: PIV with no evidence of infection Assessment & Plan Remarks IMPRESSION Extensive PNA on R, came from home, previously had PSAE, patient with COPD/ emphysema - now with PSAE again Chronic cavitary RUL lesion, previous bronch, Dec 2015 neg AFB, has Aspergillus of unclear significance, ?colonization COPD RECOMMENDATION Continue IV Zosyn Stop Levaquin Pulmonary to do bronch tomorrow Also on steroids - solucortef Monitor progress Migdalia Luna MD Apr 23, 2016 16:11
[2016-04-23] MEDS ORDERED: DEXT 5%-NACL 0.45% 1000 ML INJ 1,000 ML IV SCH (16:35)
[2016-04-23] MEDS: traZODone HCL 100 MG TAB PO SCH (21:14)
[2016-04-23] MEDS: MIRTAZAPINE 15 MG TAB PO SCH (21:14)
[2016-04-24] VITALS (8 sets, daily range): BP systolic 106–133; BP diastolic 58–71; PULSE 48–85; RESP 16–22; TEMP 97.4–97.9; O2SAT 92–97
[2016-04-24] MEDS: RESP: ALBUTEROL 2.5 MG/IPRATROPIUM 0.5 MG NEB (SCH) NEB ×7 (00:11→23:29)
[2016-04-24] MEDS: HYDROCORTISONE SOD SUCCINATE 100 MG VIAL IV PUSH SCH ×4 (00:20→21:51)
[2016-04-24] MEDS: oxyCODONE/ACETAMINOPHEN 7.5 MG/325 MG TAB PO PRN ×3 (00:20→18:23)
[2016-04-24] MEDS: CHLORHEXIDINE GLUCONATE 2 % 1 PACK (2 CLOTHS) TOP SCH (04:00)
[2016-04-24] MEDS: PIPERACIL-TAZO 4.5 GM PREMIX 100 ML IV SCH ×4 (04:33→21:51)
[2016-04-24] MEDS: FAMOTIDINE 20 MG TAB PO SCH ×2 (08:08→21:50)
[2016-04-24] MEDS: SODIUM CHLORIDE 0.9% FLUSH 5 ML FLUSH IV FLUSH SCH ×2 (08:09→21:00)
[2016-04-24] MEDS: FLUTICASONE PROPIONATE 50 MCG/ACT 16 GM NASAL SPRAY NASAL SCH (08:09)
[2016-04-24] MEDS: FLUTICASONE PROPIONATE 110 MCG/ACT 12 GM INHALER INH SCH ×2 (08:09→21:55)
[2016-04-24] MEDS: HEPARIN SODIUM - SQ 10,000 UNITS/ML VIAL SQ SCH ×2 (09:00→21:51)
--- NOTE | 2016-04-24 11:06 | HHI.IDPN ---
Subjective Subjective Remarks Notes reviewed Temps ok Looks better On nasal O2, down to 2L Bronch this afternoon MTB PCR negative Legio and Pneumo Ag neg Influenza neg Sputum C/S PSAE WBC better Antibiotics Zosyn Lines PIV Past Medical History Reviewed Allergies: Uncoded Allergies: PERFUMES/COLOGNES (Adverse Reaction, Intermediate, Wheezing, 01/23/16) SOB/DIFFICULTY BREATHING Objective . Vital Signs Date Time Temp Pulse Resp B/P Pulse Ox O2 Delivery O2 Flow Rate FiO2 04/24/16 08:00 97.6 66 18 113/63 96 04/24/16 07:47 96 Nasal Cannula 2.00 04/24/16 03:54 97.8 66 16 106/58 94 04/24/16 00:30 97.6 67 16 129/68 92 04/23/16 21:55 97.2 58 16 117/68 95 04/23/16 20:10 97 Nasal Cannula 3.00 04/23/16 16:00 97.7 72 20 137/74 95 04/23/16 11:45 97.2 63 20 124/62 96 04/23/16 04/23/16 04/24/16 15:00 23:00 07:00 Intake Total 720 ml 480 ml 0 ml Output Total 600 ml 0 ml Balance 120 ml 480 ml 0 ml Intake Oral 720 ml 480 ml 0 ml Output Urine Total 600 ml Stool Total 0 ml # Voids 4 3 # Bowel Movements 0 Imaging Lower Extremity Ultrasound 04/19/16 0000 Signed Impressions: Service Date/Time: April 17:37 - CONCLUSION: Negative for DVT Mane Steele MD FACR Chest X-Ray 04/19/16 0000 Signed Impressions: Service Date/Time: April 04:08 - CONCLUSION: 1. Interval development of probable pneumonia in the right midlung and right lower lobe. 2. Opacity in the right upper lobe is unchanged. 3. Recommend treatment and followup to resolution. Kaushik Littlejohn MD CT Angiography 04/19/16 0000 Signed Impressions: Service Date/Time: April 09:43 - CONCLUSION: Progressive areas of airspace consolidation identified within the right upper lobe, right middle lobe and right lower lobe. This is consistent with acute infection in the setting of background centrilobular emphysema and bronchiectasis within the right upper lobe. No evidence of PE.. Zita Salinas MD Physical Exam GENERAL: awake and alert, NAD SKIN: No generalized rash. HEENT: [place] conjunctivae. No scleral icterus. Moist oral mucosa. NECK: Supple, nontender, no meningeal signs. CARDIOVASCULAR: Distant heart sounds, difficult to fully evaluate due to the diffuse rhonchi. RESPIRATORY: Decreased BS R side, few wheezing GASTROINTESTINAL: Abdomen soft, non-tender, nondistended. No guarding. MUSCULOSKELETAL: Extremities without clubbing, cyanosis, or edema. No calf tenderness. NEUROLOGICAL: Non-focal PSYCH: Calm and cooperative LINE: PIV with no evidence of infection Assessment & Plan Remarks IMPRESSION Extensive PNA on R, came from home, previously had PSAE, patient with COPD/ emphysema - now with PSAE again Chronic cavitary RUL lesion, previous bronch, Dec 2015 neg AFB, has Aspergillus of unclear significance, ?colonization COPD RECOMMENDATION Continue IV Zosyn Bronch today Recheck labs in AM Also on steroids - solucortef Monitor progress Migdalia Luna MD Apr 24, 2016 11:05
[2016-04-24] MEDS ORDERED: PROPOFOL 200 MG/20 ML AMP IV ONE (12:00)
[2016-04-24] MEDS ORDERED: ONDANSETRON HCL 4 MG/2 ML VIAL IV PUSH ONE (12:00)
[2016-04-24] MEDS ORDERED: BENZONATATE 100 MG CAP PO PRN (15:30)
[2016-04-24] MEDS ORDERED: guaiFENesin/CODEINE SYRUP 200 MG/20 MG/10 ML CUP PO PRN (15:30)
--- NOTE | 2016-04-24 15:33 | HHI.PR ---
Subjective Remarks Follow-up COPD and pneumonia. Improving shortness of breath but complaining of inability to bring up phlegm. Awaiting bronchoscopy. Discussed with RN Objective Vitals Vital Signs Date Time Temp Pulse Resp B/P Pulse Ox O2 Delivery O2 Flow Rate FiO2 04/24/16 12:00 97.4 66 22 133/71 96 04/24/16 08:00 97.6 66 18 113/63 96 04/24/16 07:47 96 Nasal Cannula 2.00 04/24/16 03:54 97.8 66 16 106/58 94 04/24/16 00:30 97.6 67 16 129/68 92 04/23/16 21:55 97.2 58 16 117/68 95 04/23/16 20:10 97 Nasal Cannula 3.00 04/23/16 16:00 97.7 72 20 137/74 95 I/O 04/23/16 04/23/16 04/23/16 04/24/16 04/24/16 04/24/16 07:00 15:00 23:00 07:00 15:00 23:00 Intake Total 680 ml 720 ml 480 ml 0 ml Output Total 600 ml 0 ml Balance 680 ml 120 ml 480 ml 0 ml Intake Oral 680 ml 720 ml 480 ml 0 ml Output Urine Total 600 ml Stool Total 0 ml # Voids 2 4 3 # Bowel Movements 0 Result Diagram: 04/21/16 0620 04/21/16 0620 Imaging Last Impressions Chest X-Ray 04/21/16 0400 Signed Impressions: Service Date/Time: Thursday, April 21, 2016 03:34 - CONCLUSION: Patchy alveolar disease characteristic of edema or pneumonia. There has been no significant change when compared to the prior exam. Leo Hernandez MD Lower Extremity Ultrasound 04/19/16 0000 Signed Impressions: Service Date/Time: April 17:37 - CONCLUSION: Negative for DVT Mane Steele MD FACR CT Angiography 04/19/16 0000 Signed Impressions: Service Date/Time: April 09:43 - CONCLUSION: Progressive areas of airspace consolidation identified within the right upper lobe, right middle lobe and right lower lobe. This is consistent with acute infection in the setting of background centrilobular emphysema and bronchiectasis within the right upper lobe. No evidence of PE.. Zita Salinas MD Objective Remarks GENERAL: This is a well-nourished, well-developed patient, in no apparent distress. CARDIOVASCULAR: Regular rate and rhythm without murmurs, gallops, or rubs. RESPIRATORY: Decreased Breath sounds equal bilaterally. No wheezes, rales, or rhonchi. GASTROINTESTINAL: Abdomen soft, non-tender, nondistended. Normal active bowel sounds MUSCULOSKELETAL: Extremities without clubbing, cyanosis, or edema. NEURO: Alert & Oriented x4 to person, place, time, situation. Moves all ext x4 A/P Problem List: (1) COPD (chronic obstructive pulmonary disease) ICD Code: J44.9 Status: Acute (2) Pneumonia ICD Code: J18.9 Status: Acute Assessment and Plan - acute hypoxic respiratory failure due to COPD exacerbation/ pneumonia keep on oxygen to keep O2 sat > 90%- continue with steroids, oxygen and nebulization. Decrease steroids - Severe sepsis (increased respiratory rate and leukocytosis with elevated lactic acid) secondary to Pseudomonas pneumonia Continue IV Zosyn sputum culture with pseudomonas. pulmonary for bronchoscopy. - Hyperglycemia. Obtain A1c -DVT/ GI prophylaxis with subq heparin and pepcid Discharge Planning Not stable for discharge Adriano Mcwilliams MD Apr 24, 2016 15:33
[2016-04-24] MEDS ORDERED: SODIUM CHLORIDE 0.9% 20 ML VIAL ONE ×2 (15:39→15:44)
[2016-04-24] MEDS ORDERED: EPINEPHrine HCL (1:1000) 1 MG/ML VIAL ONE (15:40)
[2016-04-24] MEDS ORDERED: LIDOCAINE HCL 2% PF SOLN 10 ML VIAL ONE (15:41)
[2016-04-24] MEDS ORDERED: DEXAMETHASONE SOD PHOS 4 MG/ML VIAL ONE (15:54)
[2016-04-24] MEDS ORDERED: FAMOTIDINE 20 MG/2 ML VIAL ONE (15:54)
[2016-04-24] MEDS ORDERED: *RESP: ALBUTEROL 2.5 MG/3 ML NEB (PRN) PERIprocedural Use ONLY NEB ONE (16:42)
[2016-04-24] MEDS ORDERED: MIDAZOLAM HCL 2 MG/2 ML VIAL ONE (17:01)
[2016-04-24] MEDS ORDERED: DO NOT ADM ANY ANTICOAGULANT DRUGS XX PRN (17:15)
--- NOTE | 2016-04-24 18:39 | MR ---
cc: XU MCNAIR M.D. DATE 04/24/2016 Cc: PROCEDURE Fiberoptic bronchoscopy, flexible. REASON FOR BRONCHOSCOPY Cavitary pneumonia right upper lung with expansion to right middle and lower lungs. Rule out underlying malignancy, rule out chronic inflammatory process or opportunistic infection or other. Fiberoptic bronchoscopy performed via LMA. Vocal cords intact. Trachea moderately hyperemic. Tsephanie sharp. Thick mucoid secretion throughout the tracheobronchial tree noted, all removed. No mass lesion identified the right upper, middle and lower lobes. The left upper and lower lobes were all inspected. No obstruction is noted either. Washings obtained from both sides of the tracheobronchial tree for routine TB, fungal cultures as well as cytological exam. The bronchoscope was then introduced in to the right upper lobe where cytological brush biopsies were obtained as well as microbiology samples. The procedure well tolerated. The patient transferred to recovery in stable condition. IMPRESSION 1. Diffuse severe hyperemia and excess mucoid secretion and plugging. 2. No mass lesion or obstruction. 3. Samples obtained as above. 4. Procedure well tolerated . 5. The patient transferred to recovery in stable condition. MD CINTHIA Flowers/GISSELLE /4:34 PM /6:30 PM
[2016-04-24] MEDS: traZODone HCL 100 MG TAB PO SCH (21:50)
[2016-04-24] MEDS: guaiFENesin E.R. 600 MG TAB PO SCH (21:50)
[2016-04-24] MEDS: MIRTAZAPINE 15 MG TAB PO SCH (21:50)
[2016-04-25] VITALS (8 sets, daily range): BP systolic 110–145; BP diastolic 59–78; PULSE 63–71; RESP 18–20; TEMP 96.9–98.1; O2SAT 94–98
[2016-04-25] MEDS: oxyCODONE/ACETAMINOPHEN 7.5 MG/325 MG TAB PO PRN ×4 (00:25→18:17)
[2016-04-25] MEDS: RESP: ALBUTEROL 2.5 MG/IPRATROPIUM 0.5 MG NEB (SCH) NEB ×5 (01:49→20:01)
[2016-04-25] MEDS: CHLORHEXIDINE GLUCONATE 2 % 1 PACK (2 CLOTHS) TOP SCH (04:00)
[2016-04-25] MEDS: PIPERACIL-TAZO 4.5 GM PREMIX 100 ML IV SCH ×4 (05:23→22:00)
[2016-04-25] MEDS: HYDROCORTISONE SOD SUCCINATE 100 MG VIAL IV PUSH SCH ×2 (05:24→13:54)
[2016-04-25] MEDS ORDERED: MAGNESIUM HYDROXIDE SUSP 30 ML CUP PO PRN (06:00)
[2016-04-25] MEDS ORDERED: BISACODYL 10 MG SUPP PR PRN (06:00)
[2016-04-25] MEDS ORDERED: LACTULOSE SYRUP 20 GM/30 ML CUP PO PRN (06:00)
[2016-04-25] MEDS ORDERED: DOCUSATE SODIUM 100 MG CAP PO PRN (06:00)
[2016-04-25 07:26] LABS: AUTOMATED NEUTROPHIL # 7.4 TH/MM3 (1.8-7.7); BASOPHIL % 0.1 % (0.0-2.0); EOSINOPHIL # 0.1 TH/MM3 (0-0.4); EOSINOPHIL % 1.3 % (0.0-4.0); HEMATOCRIT 43.5 % (39.0-51.0); HEMO FLAGS DIFF FINAL; LYMPH % 18.3 % (9.0-44.0); LYMPHOCYTE # 1.9 TH/MM3 (1.0-4.8); MEAN CELL VOLUME 84.5 FL (80.0-100.0); MEAN CORPUSCULAR HEMOGLOBIN 27.8 PG (27.0-34.0); MEAN CORPUSCULAR HGB CONC 32.9 % (32.0-36.0); MONO % 7.8 % (0.0-8.0); NEUT % 72.5 % (16.0-70.0); PLATELET COUNT 210 TH/MM3 (150-450); RED BLOOD COUNT 5.15 MIL/MM3 (4.50-5.90); WHITE BLOOD COUNT 10.3 TH/MM3 (4.0-11.0)
[2016-04-25 07:54] LABS: ALT (GPT) 58 U/L (12-78); ANION GAP 6 MEQ/L (5-15); AST (GOT) 26 U/L (15-37); BICARBONATE 34.2 MEQ/L (21.0-32.0); BLOOD UREA NITROGEN 17 MG/DL (7-18); CHLORIDE 102 MEQ/L (98-107); GLOMERULAR FILTRATION RATE 77 ML/MIN (>89); SODIUM (NA) 142 MEQ/L (136-145)
[2016-04-25 07:56] LABS: ALKALINE PHOSPHATASE 29 U/L (45-117); TOTAL BILIRUBIN ADULT 0.5 MG/DL (0.2-1.0)
[2016-04-25] MEDS: DOCUSATE SODIUM 50 MG/SENNA 8.6 MG TAB PO SCH ×2 (08:21→21:59)
[2016-04-25] MEDS: FAMOTIDINE 20 MG TAB PO SCH ×2 (08:21→21:59)
[2016-04-25] MEDS: FLUTICASONE PROPIONATE 50 MCG/ACT 16 GM NASAL SPRAY NASAL SCH (08:22)
[2016-04-25] MEDS: SODIUM CHLORIDE 0.9% FLUSH 5 ML FLUSH IV FLUSH SCH ×2 (08:22→21:00)
[2016-04-25] MEDS: guaiFENesin E.R. 600 MG TAB PO SCH ×2 (08:22→21:59)
[2016-04-25] MEDS: FLUTICASONE PROPIONATE 110 MCG/ACT 12 GM INHALER INH SCH ×2 (08:22→21:00)
[2016-04-25] MEDS: HEPARIN SODIUM - SQ 10,000 UNITS/ML VIAL SQ SCH ×2 (08:22→21:59)
--- NOTE | 2016-04-25 15:10 | HHI.PR ---
Subjective Remarks Follow-up pneumonia. He is breathing better. He has been ambulating in his room he was to go outside. Currently on 1 L nasal cannula. Discussed with RN Objective Vitals Vital Signs Date Time Temp Pulse Resp B/P Pulse Ox O2 Delivery O2 Flow Rate FiO2 04/25/16 12:00 97.6 71 20 140/78 94 04/25/16 08:44 98 Nasal Cannula 2.00 04/25/16 08:00 98.1 69 20 118/65 97 04/25/16 00:00 98.0 64 20 110/59 97 04/24/16 20:00 82 04/24/16 20:00 97.9 85 20 127/60 97 04/24/16 19:51 96 Nasal Cannula 04/24/16 17:20 74 16 128/71 96 Nasal Cannula 3 04/24/16 17:05 68 16 112/64 96 Nasal Cannula 3 04/24/16 16:55 75 19 110/65 95 Aerosol Mask 04/24/16 16:41 96.4 105 19 113/64 95 Simple Mask 6 I/O 04/24/16 04/24/16 04/24/16 04/25/16 04/25/16 04/25/16 07:00 15:00 23:00 07:00 15:00 23:00 Intake Total 0 ml 1200 ml 480 ml 480 ml Output Total 5 ml 1000 ml Balance 0 ml 1195 ml 480 ml -520 ml Intake Oral 0 ml 400 ml 480 ml 480 ml IV Total 100 ml Other 700 ml Output Urine Total 1000 ml Estimated Blood Loss 5 ml # Voids 3 2 2 # Bowel Movements 0 0 0 Result Diagram: 04/25/16 0647 04/25/16 0647 Objective Remarks GENERAL: This is a well-nourished, well-developed patient, in no apparent distress. CARDIOVASCULAR: Regular rate and rhythm without murmurs, gallops, or rubs. RESPIRATORY: Decreased Breath sounds equal bilaterally. No wheezes, rales, or rhonchi. GASTROINTESTINAL: Abdomen soft, non-tender, nondistended. Normal active bowel sounds MUSCULOSKELETAL: Extremities without clubbing, cyanosis, or edema. NEURO: Alert & Oriented x4 to person, place, time, situation. Moves all ext x4 Procedures Bronchoscopy A/P Problem List: (1) COPD (chronic obstructive pulmonary disease) ICD Code: J44.9 Status: Acute (2) Pneumonia ICD Code: J18.9 Status: Acute Assessment and Plan - acute hypoxic respiratory failure due to COPD exacerbation/ pneumonia keep on oxygen to keep O2 sat > 90%- continue with steroids, oxygen and nebulization. Improving switched to by mouth steroids - Severe sepsis (increased respiratory rate and leukocytosis with elevated lactic acid) secondary to Pseudomonas pneumonia Continue IV Zosyn sputum culture with pseudomonas. Status post bronchoscopy follow-up studies negative to date. - Hyperglycemia. A1c pending - Constipation. Start bowel regimen - DVT/ GI prophylaxis with subq heparin and pepcid Discharge Planning Discharge in 1-2 days if okay with ID and pulmonary AbandoAdriano MD Apr 25, 2016 15:10
[2016-04-25] MEDS ORDERED: OXYC1TAB35 PO (15:28)
[2016-04-25] MEDS ORDERED: FAMO20TA2 PO (15:28)
--- NOTE | 2016-04-25 15:28 | HHI.DCPOC ---
Discharge Care Plan Diagnosis: (1) COPD (chronic obstructive pulmonary disease) (2) Pneumonia Your Health Problems Are: Difficulty with ADL Exercise Tolerance Goals to Promote Your Health * To prevent worsening of your condition and complications * To maintain your health at the optimal level Directions to Meet Your Goals Take your medications as prescribed Follow your dietary instruction Follow activity as directed Keep your appointments as scheduled Take your immunizations and boosters as scheduled If your symptoms worsen call your PCP, if no PCP go to Urgent Care Center or Emergency Room Smoking is Dangerous to Your Health. Avoid second hand smoke Call the 24-hour hour crisis hotline for domestic abuse at Adriano Mcwilliams MD Apr 25, 2016 15:28
[2016-04-25] MEDS ORDERED: OXYGENTANK NAS.CANULA (15:29)
[2016-04-25 15:46] LABS: HEMOGLOBIN A1a 0.7 %; HEMOGLOBIN A1b 1.9 %; HEMOGLOBIN Ao 83.4 %; HEMOGLOBIN LA1C 2.2 %; HEMOGLOBIN P3 4.4 %
[2016-04-25] MEDS: traZODone HCL 100 MG TAB PO SCH (21:59)
[2016-04-25] MEDS: MIRTAZAPINE 15 MG TAB PO SCH (21:59)
[2016-04-26] VITALS (8 sets, daily range): BP systolic 121–134; BP diastolic 64–77; PULSE 68–76; RESP 18–22; TEMP 97.2–98.1; O2SAT 92–99
[2016-04-26] MEDS: RESP: ALBUTEROL 2.5 MG/IPRATROPIUM 0.5 MG NEB (SCH) NEB ×5 (00:19→15:25)
[2016-04-26] MEDS: oxyCODONE/ACETAMINOPHEN 7.5 MG/325 MG TAB PO PRN ×4 (00:25→18:41)
[2016-04-26] MEDS: CHLORHEXIDINE GLUCONATE 2 % 1 PACK (2 CLOTHS) TOP SCH (04:00)
[2016-04-26] MEDS: PIPERACIL-TAZO 4.5 GM PREMIX 100 ML IV SCH ×4 (04:27→20:16)
[2016-04-26] MEDS: DOCUSATE SODIUM 50 MG/SENNA 8.6 MG TAB PO SCH ×3 (09:00→20:15)
[2016-04-26] MEDS: predniSONE 20 MG TAB PO SCH (09:05)
[2016-04-26] MEDS: FAMOTIDINE 20 MG TAB PO SCH ×2 (09:05→20:15)
[2016-04-26] MEDS: HEPARIN SODIUM - SQ 10,000 UNITS/ML VIAL SQ SCH ×2 (09:05→20:16)
[2016-04-26] MEDS: guaiFENesin E.R. 600 MG TAB PO SCH ×2 (09:05→20:15)
[2016-04-26] MEDS: SODIUM CHLORIDE 0.9% FLUSH 5 ML FLUSH IV FLUSH SCH ×2 (09:06→20:18)
[2016-04-26] MEDS: FLUTICASONE PROPIONATE 50 MCG/ACT 16 GM NASAL SPRAY NASAL SCH (09:06)
[2016-04-26] MEDS: FLUTICASONE PROPIONATE 110 MCG/ACT 12 GM INHALER INH SCH ×2 (09:06→20:16)
--- NOTE | 2016-04-26 15:18 | HHI.IDPN ---
Subjective Subjective Remarks Notes reviewed Temps ok Looks better On nasal O2 Bronch with GNR Cytology pending WBC down to normal MTB PCR negative Legio and Pneumo Ag neg Influenza neg Sputum C/S PSAE WBC better Antibiotics Zosyn Lines PIV Past Medical History Reviewed Allergies: Uncoded Allergies: PERFUMES/COLOGNES (Adverse Reaction, Intermediate, Wheezing, 01/23/16) SOB/DIFFICULTY BREATHING Objective . Vital Signs Date Time Temp Pulse Resp B/P Pulse Ox O2 Delivery O2 Flow Rate FiO2 04/26/16 12:01 97.5 74 22 121/64 93 04/26/16 11:38 2.00 04/26/16 07:47 96 Nasal Cannula 2.00 04/26/16 07:30 20 04/26/16 03:37 99 Nasal Cannula 2.00 04/26/16 03:15 98.1 68 18 123/77 98 04/26/16 00:21 98 2.00 04/25/16 22:20 97.2 64 18 145/75 97 04/25/16 16:00 96.9 69 20 140/77 97 04/25/16 15:59 94 Nasal Cannula 2.00 04/25/16 04/25/16 04/26/16 15:00 23:00 07:00 Intake Total 480 ml 720 ml 220 ml Output Total 1000 ml 0 ml Balance -520 ml 720 ml 220 ml Intake Oral 480 ml 720 ml 0 ml IV Total 220 ml Output Urine Total 1000 ml 0 ml # Voids 2 # Bowel Movements 0 0 0 . Laboratory Tests Test 04/25/16 06:47 White Blood Count 10.3 TH/MM3 Red Blood Count 5.15 MIL/MM3 Hemoglobin 14.3 GM/DL Hematocrit 43.5 % Mean Corpuscular Volume 84.5 FL Mean Corpuscular Hemoglobin 27.8 PG Mean Corpuscular Hemoglobin 32.9 % Concent Red Cell Distribution Width 16.0 % Platelet Count 210 TH/MM3 Mean Platelet Volume 8.6 FL Neutrophils (%) (Auto) 72.5 % Lymphocytes (%) (Auto) 18.3 % Monocytes (%) (Auto) 7.8 % Eosinophils (%) (Auto) 1.3 % Basophils (%) (Auto) 0.1 % Neutrophils # (Auto) 7.4 TH/MM3 Lymphocytes # (Auto) 1.9 TH/MM3 Monocytes # (Auto) 0.8 TH/MM3 Eosinophils # (Auto) 0.1 TH/MM3 Basophils # (Auto) 0.0 TH/MM3 CBC Comment DIFF FINAL Differential Comment Laboratory Tests Test 04/25/16 06:47 Sodium Level 142 MEQ/L Potassium Level 4.0 MEQ/L Chloride Level 102 MEQ/L Carbon Dioxide Level 34.2 MEQ/L Anion Gap 6 MEQ/L Blood Urea Nitrogen 17 MG/DL Creatinine 0.98 MG/DL Estimat Glomerular Filtration 77 ML/MIN Rate Random Glucose 113 MG/DL Hemoglobin A1c 6.3 % Calcium Level 8.6 MG/DL Total Bilirubin 0.5 MG/DL Aspartate Amino Transf 26 U/L (AST/SGOT) Alanine Aminotransferase 58 U/L (ALT/SGPT) Alkaline Phosphatase 29 U/L Total Protein 6.4 GM/DL Albumin 2.9 GM/DL Microbiology Date/Time Procedure Status Source Growth 04/24/16 16:28 Gram Stain - Final Resulted Bronchial Washings Other 04/24/16 16:28 Bronchial Culture - Preliminary Resulted Gram Negative Carlos 04/24/16 16:28 Acid Fast Stain - Final Resulted Bronchial Washings Other NO ACID FAST BACILLI SEEN 04/24/16 16:28 Mycobacterial Culture Resulted Bronchial Washings Other Pending 04/24/16 16:28 Fungal Smear - Final Resulted Bronchial Washings Other NO FUNGAL ELEMENTS SEEN. 04/24/16 16:28 Fungal Culture Resulted Bronchial Washings Other Pending 04/24/16 16:28 Bronchial Aspirate Culture - Final Complete Bronchial Brushings Right Upper Lobe NO GROWTH IN 48 HOURS. 04/24/16 16:28 Acid Fast Stain - Final Resulted Bronchial Brushings Right Upper Lobe NO ACID FAST BACILLI SEEN 04/24/16 16:28 Mycobacterial Culture Resulted Bronchial Brushings Right Upper Lobe Pending 04/24/16 16:28 Fungal Smear - Final Resulted Bronchial Brushings Right Upper Lobe 04/24/16 16:28 Fungal Culture Resulted Bronchial Brushings Right Upper Lobe Pending 04/24/16 17:48 Gram Stain Received Bronchial Washings Other Pending 04/24/16 17:48 Bronchial Culture Received Bronchial Washings Other Pending 04/24/16 17:51 Fungal Smear Received Bronchial Brushings Right Upper Lobe Pending 04/24/16 17:51 Fungal Culture Received Bronchial Brushings Right Upper Lobe Pending Imaging Lower Extremity Ultrasound 04/19/16 0000 Signed Impressions: Service Date/Time: April 17:37 - CONCLUSION: Negative for DVT Mane Steele MD FACR Chest X-Ray 04/19/16 0000 Signed Impressions: Service Date/Time: April 04:08 - CONCLUSION: 1. Interval development of probable pneumonia in the right midlung and right lower lobe. 2. Opacity in the right upper lobe is unchanged. 3. Recommend treatment and followup to resolution. Kaushik Littlejohn MD CT Angiography 04/19/16 0000 Signed Impressions: Service Date/Time: April 09:43 - CONCLUSION: Progressive areas of airspace consolidation identified within the right upper lobe, right middle lobe and right lower lobe. This is consistent with acute infection in the setting of background centrilobular emphysema and bronchiectasis within the right upper lobe. No evidence of PE.. Zita Salinas MD Physical Exam GENERAL: awake and alert, NAD SKIN: No generalized rash. HEENT: [place] conjunctivae. No scleral icterus. Moist oral mucosa. NECK: Supple, nontender, no meningeal signs. CARDIOVASCULAR: Distant heart sounds, difficult to fully evaluate due to the diffuse rhonchi. RESPIRATORY: Decreased BS R side, few wheezing GASTROINTESTINAL: Abdomen soft, non-tender, nondistended. No guarding. MUSCULOSKELETAL: Extremities without clubbing, cyanosis, or edema. No calf tenderness. NEUROLOGICAL: Non-focal PSYCH: Calm and cooperative LINE: PIV with no evidence of infection Assessment & Plan Remarks IMPRESSION Extensive PNA on R, came from home, previously had PSAE, patient with COPD/ emphysema - now with PSAE again Chronic cavitary RUL lesion, previous bronch, Dec 2015 neg AFB, has Aspergillus of unclear significance, ?colonization COPD RECOMMENDATION Continue IV Zosyn Follow new C/S CXR tomorrow Will determine course of Abx once bronch C/S available Currently based on his first sputum C/S, no oral Abx option for D/C Monitor progress Migdalia Luna MD Apr 26, 2016 15:18
--- NOTE | 2016-04-26 16:07 | HHI.PR ---
Subjective Remarks F/u PNA. He is doing okay on nasal cannula. Intermittently having wheezes. Discussed with pulmonary, keep patient till tomorrow for repeat chest x-ray. Per ID, no by mouth antibiotics available against Pseudomonas Objective Vitals Vital Signs Date Time Temp Pulse Resp B/P Pulse Ox O2 Delivery O2 Flow Rate FiO2 04/26/16 12:01 97.5 74 22 121/64 93 04/26/16 11:38 2.00 04/26/16 07:47 96 Nasal Cannula 2.00 04/26/16 07:30 20 04/26/16 03:37 99 Nasal Cannula 2.00 04/26/16 03:15 98.1 68 18 123/77 98 04/26/16 00:21 98 2.00 04/25/16 22:20 97.2 64 18 145/75 97 I/O 04/25/16 04/25/16 04/25/16 04/26/16 04/26/16 04/26/16 07:00 15:00 23:00 07:00 15:00 23:00 Intake Total 480 ml 480 ml 720 ml 220 ml Output Total 1000 ml 0 ml Balance 480 ml -520 ml 720 ml 220 ml Intake Oral 480 ml 480 ml 720 ml 0 ml IV Total 220 ml Output Urine Total 1000 ml 0 ml # Voids 2 2 # Bowel Movements 0 0 0 Result Diagram: 04/25/16 0647 04/25/16 0647 Objective Remarks GENERAL: This is a well-nourished, well-developed patient, in no apparent distress. CARDIOVASCULAR: Regular rate and rhythm without murmurs, gallops, or rubs. RESPIRATORY: Decreased Breath sounds equal bilaterally. Mild wheezes GASTROINTESTINAL: Abdomen soft, non-tender, nondistended. Normal active bowel sounds MUSCULOSKELETAL: Extremities without clubbing, cyanosis, or edema. NEURO: Alert & Oriented x4 to person, place, time, situation. Moves all ext x4 Procedures Bronchoscopy A/P Problem List: (1) COPD (chronic obstructive pulmonary disease) ICD Code: J44.9 Status: Acute (2) Pneumonia ICD Code: J18.9 Status: Acute Assessment and Plan - acute hypoxic respiratory failure due to COPD exacerbation/ pneumonia keep on oxygen to keep O2 sat > 90%- continue with steroids, oxygen and nebulization. Has mild expiratory wheezes. We will monitor - Severe sepsis (increased respiratory rate and leukocytosis with elevated lactic acid) secondary to Pseudomonas pneumonia Continue IV Zosyn sputum culture with pseudomonas security shows no oral antibiotic effective against it. Status post bronchoscopy follow-up studies growing gram-negative broad - Hyperglycemia. A1c 6.3. - Constipation. Continue bowel regimen - DVT/ GI prophylaxis with subq heparin and pepcid Discharge Planning Discharge in 1-2 days if okay with ID and pulmonary AbandAdriano villa MD Apr 26, 2016 16:07
--- NOTE | 2016-04-26 18:12 | RADRPT ---
EXAM DATE/TIME: 04/26/2016 18:01 [facility] COMPARISON: CHEST PA & LAT, December 30, 2015, 10:21. INDICATIONS : Short of breath. MEDICAL HISTORY : None. SURGICAL HISTORY : None. ENCOUNTER: Initial ACUITY: 1 week PAIN SCORE: 0/10 LOCATION: Right chest FINDINGS: PA and lateral views of the chest were obtained and demonstrate residual scarring in the right upper lobe. There are no new confluent infiltrates or effusions. There is mild with no evidence of pneumoni a. at the lung bases. The heart and mediastinal structures remain within normal limits. The bony thor ax is intact. CONCLUSION: Parenchymal scarring with no evidence of pneumonia. Ulices Larsen MD on April 26, 2016 at 18:09 Board Certified Radiologist. This report was verified electronically.
[2016-04-26] MEDS: MIRTAZAPINE 15 MG TAB PO SCH (20:15)
[2016-04-26] MEDS: traZODone HCL 100 MG TAB PO SCH (20:15)
[2016-04-26] MEDS: SODIUM CHLORIDE 0.9% FLUSH 5 ML FLUSH IV FLUSH PRN (20:18)
[2016-04-27] VITALS (9 sets, daily range): BP systolic 113–156; BP diastolic 55–87; PULSE 66–83; RESP 20–24; TEMP 97.2–97.9; O2SAT 93–98
[2016-04-27] MEDS: RESP: ALBUTEROL 2.5 MG/IPRATROPIUM 0.5 MG NEB (SCH) NEB ×4 (00:08→11:48)
[2016-04-27] MEDS: oxyCODONE/ACETAMINOPHEN 7.5 MG/325 MG TAB PO PRN ×4 (00:34→20:12)
[2016-04-27] MEDS: CHLORHEXIDINE GLUCONATE 2 % 1 PACK (2 CLOTHS) TOP SCH (04:00)
[2016-04-27] MEDS: PIPERACIL-TAZO 4.5 GM PREMIX 100 ML IV SCH ×4 (05:53→22:00)
[2016-04-27] MEDS: predniSONE 20 MG TAB PO SCH (09:21)
[2016-04-27] MEDS: guaiFENesin E.R. 600 MG TAB PO SCH ×2 (09:21→22:05)
[2016-04-27] MEDS: HEPARIN SODIUM - SQ 10,000 UNITS/ML VIAL SQ SCH ×2 (09:22→21:00)
[2016-04-27] MEDS: FAMOTIDINE 20 MG TAB PO SCH ×2 (09:22→22:05)
[2016-04-27] MEDS: DOCUSATE SODIUM 50 MG/SENNA 8.6 MG TAB PO SCH ×2 (09:22→22:04)
[2016-04-27] MEDS: FLUTICASONE PROPIONATE 50 MCG/ACT 16 GM NASAL SPRAY NASAL SCH (09:23)
[2016-04-27] MEDS: SODIUM CHLORIDE 0.9% FLUSH 5 ML FLUSH IV FLUSH SCH ×2 (09:24→21:00)
[2016-04-27] MEDS: FLUTICASONE PROPIONATE 110 MCG/ACT 12 GM INHALER INH SCH ×2 (09:24→21:00)
--- NOTE | 2016-04-27 12:48 | HHI.IDPN ---
Subjective Subjective Remarks Notes reviewed D/W Dr Mcwilliams Patient does not want to go home with IV Abx Temps ok States breathing is good C/O increased abdominal girth and BLE swelling Also C/O itching and scratching his abdomen and back On nasal O2 Bronch with Pseudomonas Cytology pending WBC down to normal MTB PCR negative Legio and Pneumo Ag neg Influenza neg First Sputum C/S PSAE WBC better Antibiotics Zosyn Lines PIV Past Medical History Reviewed Allergies: Uncoded Allergies: PERFUMES/COLOGNES (Adverse Reaction, Intermediate, Wheezing, 01/23/16) SOB/DIFFICULTY BREATHING Objective . Vital Signs Date Time Temp Pulse Resp B/P Pulse Ox O2 Delivery O2 Flow Rate FiO2 04/27/16 08:15 96 Nasal Cannula 3.00 04/27/16 08:01 97.7 80 22 113/67 93 04/27/16 04:00 97.2 66 20 156/87 98 04/27/16 00:18 97.5 68 20 122/55 97 04/27/16 00:09 97 Nasal Cannula 2.00 04/26/16 20:03 92 Nasal Cannula 2.00 04/26/16 20:00 97.2 76 20 127/69 96 04/26/16 16:02 97.4 72 22 134/75 94 04/26/16 13:41 20 04/26/16 04/26/16 04/27/16 15:00 23:00 07:00 Intake Total 720 ml 240 ml 1440 ml Output Total 700 ml 900 ml Balance 20 ml -660 ml 1440 ml Intake Oral 720 ml 240 ml 1440 ml Output Urine Total 700 ml 900 ml # Voids 3 # Bowel Movements 1 1 2 . Microbiology Date/Time Procedure Status Source Growth 04/24/16 16:28 Gram Stain - Final Resulted Bronchial Washings Other 04/24/16 16:28 Bronchial Culture - Preliminary Resulted Pseudomonas Species 04/24/16 16:28 Acid Fast Stain - Final Resulted Bronchial Washings Other NO ACID FAST BACILLI SEEN 04/24/16 16:28 Mycobacterial Culture Resulted Bronchial Washings Other Pending 04/24/16 16:28 Fungal Smear - Final Resulted Bronchial Washings Other NO FUNGAL ELEMENTS SEEN. 04/24/16 16:28 Fungal Culture Resulted Bronchial Washings Other Pending 04/24/16 16:28 Bronchial Aspirate Culture - Final Complete Bronchial Brushings Right Upper Lobe NO GROWTH IN 48 HOURS. 04/24/16 16:28 Acid Fast Stain - Final Resulted Bronchial Brushings Right Upper Lobe NO ACID FAST BACILLI SEEN 04/24/16 16:28 Mycobacterial Culture Resulted Bronchial Brushings Right Upper Lobe Pending 04/24/16 16:28 Fungal Smear - Final Resulted Bronchial Brushings Right Upper Lobe 04/24/16 16:28 Fungal Culture Resulted Bronchial Brushings Right Upper Lobe Pending 04/24/16 17:48 Gram Stain Received Bronchial Washings Other Pending 04/24/16 17:48 Bronchial Culture Received Bronchial Washings Other Pending 04/24/16 17:51 Fungal Smear Received Bronchial Brushings Right Upper Lobe Pending 04/24/16 17:51 Fungal Culture Received Bronchial Brushings Right Upper Lobe Pending Imaging Chest X-Ray 04/26/16 0000 Signed Impressions: Service Date/Time: April 18:01 - CONCLUSION: Parenchymal scarring with no evidence of pneumonia. Ulices Larsen MD Lower Extremity Ultrasound 04/19/16 0000 Signed Impressions: Service Date/Time: April 17:37 - CONCLUSION: Negative for DVT Mane Steele MD FACR Chest X-Ray 04/19/16 0000 Signed Impressions: Service Date/Time: April 04:08 - CONCLUSION: 1. Interval development of probable pneumonia in the right midlung and right lower lobe. 2. Opacity in the right upper lobe is unchanged. 3. Recommend treatment and followup to resolution. Kaushik Littlejohn MD CT Angiography 04/19/16 0000 Signed Impressions: Service Date/Time: April 09:43 - CONCLUSION: Progressive areas of airspace consolidation identified within the right upper lobe, right middle lobe and right lower lobe. This is consistent with acute infection in the setting of background centrilobular emphysema and bronchiectasis within the right upper lobe. No evidence of PE.. Zita Salinas MD Physical Exam GENERAL: awake and alert, NAD SKIN: No generalized rash. Has linear scratch velazquez in his trunk, no rash noted anywhere else HEENT: [place] conjunctivae. No scleral icterus. Moist oral mucosa. NECK: Supple, nontender, no meningeal signs. CARDIOVASCULAR: Distant heart sounds, difficult to fully evaluate due to the diffuse rhonchi. RESPIRATORY: Decreased BS caesar, no wheezing or rhonchi GASTROINTESTINAL: Abdomen soft, non-tender, distended. No guarding. MUSCULOSKELETAL: Extremities without clubbing, cyanosis. No calf tenderness. Has caesar LE edema NEUROLOGICAL: Non-focal PSYCH: Calm and cooperative LINE: PIV with no evidence of infection Assessment & Plan Remarks IMPRESSION Extensive PNA on R, came from home, previously had PSAE, patient with COPD/ emphysema - now with PSAE again - CXR much improved Chronic cavitary RUL lesion, previous bronch, Dec 2015 neg AFB, has Aspergillus of unclear significance, ?colonization COPD Increased abdominal distension and BLE edema - he has Hc Hep C; ?if with liver cirrhosis RECOMMENDATION Continue IV Zosyn - would like to give at least 14 days, possibly longer? US to look for ascites Monitor skin and itching - currently no obvious rash seen except the linear scratch velazquez in his trunk Follow new C/S Monitor progress No oral Ab option for him to complete Rx D/W Dr Mcwilliams Explained plan to patient I will check patient again on Saturday If with any question or new issue, Dr Andrews Desai covering this weekend Migdalia Luna MD Apr 27, 2016 12:47
--- NOTE | 2016-04-27 13:01 | HHI.PR ---
Subjective Remarks Follow-up pneumonia. He does not want to be discharged home with IV antibiotics secondary to bad experience. Complains of pruritus, increasing abdominal girth and bilateral lower extremity swelling. He has been anxious with difficulty sleeping. Had a good bowel movement today. Discussed with ID and RN Objective Vitals Vital Signs Date Time Temp Pulse Resp B/P Pulse Ox O2 Delivery O2 Flow Rate FiO2 04/27/16 08:15 96 Nasal Cannula 3.00 04/27/16 08:01 97.7 80 22 113/67 93 04/27/16 04:00 97.2 66 20 156/87 98 04/27/16 00:18 97.5 68 20 122/55 97 04/27/16 00:09 97 Nasal Cannula 2.00 04/26/16 20:03 92 Nasal Cannula 2.00 04/26/16 20:00 97.2 76 20 127/69 96 04/26/16 16:02 97.4 72 22 134/75 94 04/26/16 13:41 20 I/O 04/26/16 04/26/16 04/26/16 04/27/16 04/27/16 04/27/16 06:59 14:59 22:59 06:59 14:59 22:59 Intake Total 220 ml 720 ml 240 ml 1440 ml Output Total 700 ml 900 ml Balance 220 ml 20 ml -660 ml 1440 ml Intake Oral 0 ml 720 ml 240 ml 1440 ml IV Total 220 ml Output Urine Total 700 ml 900 ml # Voids 2 3 # Bowel Movements 0 1 1 2 Result Diagram: 04/25/16 0647 04/25/16 0647 Objective Remarks GENERAL: This is a well-nourished, well-developed patient, in no apparent distress. Skin: Colorations in the back, abdomen and bilateral lower extremities. CARDIOVASCULAR: Regular rate and rhythm without murmurs, gallops, or rubs. RESPIRATORY: Decreased Breath sounds equal bilaterally. Mild wheezes GASTROINTESTINAL: Abdomen soft, non-tender, distended. Normal active bowel sounds MUSCULOSKELETAL: Extremities without clubbing, cyanosis with bilateral lower extremity pitting edema. NEURO: Alert & Oriented x4 to person, place, time, situation. Moves all ext x4 Procedures Bronchoscopy A/P Problem List: (1) COPD (chronic obstructive pulmonary disease) ICD Code: J44.9 Status: Acute (2) Pneumonia ICD Code: J18.9 Status: Acute Assessment and Plan - acute hypoxic respiratory failure due to COPD exacerbation/ pneumonia keep on oxygen to keep O2 sat > 90%- continue with steroids, oxygen and nebulization. Has mild expiratory wheezes. We will monitor - Severe sepsis (increased respiratory rate and leukocytosis with elevated lactic acid) secondary to Pseudomonas pneumonia Continue IV Zosyn sputum culture with pseudomonas sensitivity with no effective oral agent against it. Status post bronchoscopy follow-up studies growing Pseudomonas species Refusing home health care IV antibiotics. Consult case management - Hyperglycemia. A1c 6.3. - Constipation. Continue bowel regimen - Increasing abdominal girth, bilateral lower except the swelling, pruritus and anxiety with history of hepatitis C. We'll evaluate for possible cirrhosis. Check abdominal sonogram, ammonia level, BMP and start Atarax, Lasix, potassium and maybe scheduled lactulose - DVT/ GI prophylaxis with subq heparin and pepcid Discharge Planning Not ready for discharge Adriano Mcwilliams MD Apr 27, 2016 13:01
[2016-04-27] MEDS ORDERED: hydrOXYzine HCL 25 MG TAB PO PRN (13:15)
[2016-04-27] MEDS ORDERED: POTASSIUM CHLORIDE 10 MEQ CONTROLLED RELEASE TAB PO SCH (14:00)
[2016-04-27] MEDS ORDERED: FUROSEMIDE 20 MG/2 ML VIAL IV PUSH SCH (14:00)
[2016-04-27] MEDS: LACTIC ACID (AMMONIUM LACTATE) 12% LOTION 225 GM BTL TOPICAL SCH ×2 (15:00→21:00)
--- NOTE | 2016-04-27 16:44 | RADRPT ---
EXAM DATE/TIME: 04/27/2016 15:35 [facility] COMPARISON: No previous studies available for comparison. INDICATIONS : Evaluate for ascites and cirrhosis. MEDICAL HISTORY : Chronic obstructive pulmonary disease. Gastroesophageal reflux disease. Hepatitis C. Hypertension. Pn eumonia. SURGICAL HISTORY : Left and right wrist surgery. Shoulder surgery. ENCOUNTER: Initial ACUITY: 1 day PAIN SCORE: 0/10 LOCATION: Bilateral abdomen. MEASUREMENTS: LIVER: 18.2 cm length COMMON DUCT: 4 mm RIGHT KIDNEY: 12.0 x 5.6 x 5.6 cm LEFT KIDNEY: 11.9 x 6.3 x 6.0 cm SPLEEN: 11.8 cm length AORTA: 3.0cm maximal FINDINGS: LIVER: Normal echotexture without focal lesion or ductal dilatation. Liver is at the upper limits of normal in length. COMMON DUCT: No intraluminal mass or stone visualized. GALLBLADDER: Contains no stones, demonstrates no wall thickening or pericholecystic fluid. PANCREAS: The visualized portions are within normal limits. RIGHT KIDNEY: 13 mm cyst is identified in the upper pole of the right kidney. Kidney is otherwise unremarkable. LEFT KIDNEY: No hydronephrosis, stone or mass. SPLEEN: No focal lesion. AORTA: Non aneurysmal. IVC: Within normal limits. CONCLUSION: Borderline liver enlargement without significant sonographic evidence of cirrhosis. No evidence of ascites. Simple right renal cyst. No evidence of acute process. Jon Pena MD on April 27, 2016 at 16:40 Board Certified Radiologist. This report was verified electronically.
[2016-04-27 17:40] LABS: POTASSIUM 4.2 MEQ/L (3.5-5.1)
[2016-04-27] MEDS: RESP: ALBUTEROL 2.5 MG/IPRATROPIUM 0.5 MG NEB (PRN) NEB (21:30)
[2016-04-27] MEDS: traZODone HCL 100 MG TAB PO SCH (22:05)
[2016-04-27] MEDS: MIRTAZAPINE 15 MG TAB PO SCH (22:05)
[2016-04-28] MEDS: oxyCODONE/ACETAMINOPHEN 7.5 MG/325 MG TAB PO PRN ×4 (02:49→21:21)
[2016-04-28] MEDS: CHLORHEXIDINE GLUCONATE 2 % 1 PACK (2 CLOTHS) TOP SCH (04:00)
[2016-04-28] MEDS: PIPERACIL-TAZO 4.5 GM PREMIX 100 ML IV SCH ×4 (04:13→21:21)
[2016-04-28 07:48] LABS: BICARBONATE 33.5 MEQ/L (21.0-32.0); MAGNESIUM 2.2 MG/DL (1.5-2.5); POTASSIUM 3.5 MEQ/L (3.5-5.1)
[2016-04-28] MEDS: guaiFENesin E.R. 600 MG TAB PO SCH ×2 (08:14→21:00)
[2016-04-28] MEDS: predniSONE 20 MG TAB PO SCH (08:14)
[2016-04-28] MEDS: DOCUSATE SODIUM 50 MG/SENNA 8.6 MG TAB PO SCH ×2 (08:14→21:00)
[2016-04-28] MEDS: FLUTICASONE PROPIONATE 50 MCG/ACT 16 GM NASAL SPRAY NASAL SCH (08:15)
[2016-04-28] MEDS: FAMOTIDINE 20 MG TAB PO SCH ×2 (08:15→21:20)
[2016-04-28] MEDS: FLUTICASONE PROPIONATE 110 MCG/ACT 12 GM INHALER INH SCH ×2 (08:15→21:00)
[2016-04-28] MEDS: SODIUM CHLORIDE 0.9% FLUSH 5 ML FLUSH IV FLUSH SCH ×2 (08:15→21:20)
[2016-04-28] MEDS: HEPARIN SODIUM - SQ 10,000 UNITS/ML VIAL SQ SCH ×2 (08:16→20:01)
[2016-04-28] MEDS ORDERED: POTASSIUM CHLORIDE 10 MEQ CONTROLLED RELEASE TAB PO SCH (09:00)
[2016-04-28] MEDS ORDERED: FUROSEMIDE 20 MG/2 ML VIAL IV PUSH SCH (09:00)
[2016-04-28 09:18] VITALS: O2SAT 96
[2016-04-28] MEDS: RESP: ALBUTEROL 2.5 MG/IPRATROPIUM 0.5 MG NEB (PRN) NEB ×2 (09:18→17:11)
--- NOTE | 2016-04-28 11:27 | HHI.PR ---
Subjective Remarks Follow-up for pneumonia. The patient reports he slept well last night. He has no acute complaints at this time, feels well, and would like to go home. He is still apprehensive about home infusion, because he had a bad experience last time, but might be agreeable for home infusion with a new agency. He reports his lower extremity swelling has improved. He feels like the swelling improves when he puts his legs up. He reports good urine output. He has home oxygen arranged. Objective Vitals Vital Signs Date Time Temp Pulse Resp B/P Pulse Ox O2 Delivery O2 Flow Rate FiO2 04/28/16 09:18 96 Nasal Cannula 2.50 04/27/16 21:12 18 04/27/16 20:01 95 Nasal Cannula 2.50 04/27/16 20:00 97.8 83 24 118/73 95 04/27/16 16:01 97.9 68 20 139/79 96 04/27/16 12:01 97.5 76 22 125/64 95 I/O 04/27/16 04/27/16 04/27/16 04/28/16 04/28/16 04/28/16 07:00 15:00 23:00 07:00 15:00 23:00 Intake Total 1440 ml 480 ml 240 ml 360 ml Balance 1440 ml 480 ml 240 ml 360 ml Intake Oral 1440 ml 480 ml 240 ml 360 ml # Voids 3 5 5 # Bowel Movements 2 2 2 Result Diagram: 04/25/16 0647 04/28/16 0545 Imaging Last Impressions Abdomen Ultrasound 04/27/16 0000 Signed Impressions: Service Date/Time: Wednesday, April 27, 2016 15:35 - CONCLUSION: Borderline liver enlargement without significant sonographic evidence of cirrhosis. No evidence of ascites. Simple right renal cyst. No evidence of acute process. Jon Pena MD Chest X-Ray 04/26/16 0000 Signed Impressions: Service Date/Time: April 18:01 - CONCLUSION: Parenchymal scarring with no evidence of pneumonia. Ulices Larsen MD Lower Extremity Ultrasound 04/19/16 0000 Signed Impressions: Service Date/Time: April 17:37 - CONCLUSION: Negative for DVT Mane Steele MD FACR CT Angiography 04/19/16 0000 Signed Impressions: Service Date/Time: April 09:43 - CONCLUSION: Progressive areas of airspace consolidation identified within the right upper lobe, right middle lobe and right lower lobe. This is consistent with acute infection in the setting of background centrilobular emphysema and bronchiectasis within the right upper lobe. No evidence of PE.. Zita Salinas MD Objective Remarks GENERAL: Well-developed well-nourished. In no acute distress. SKIN: Warm and dry. Ecchymosis noted on the abdomen around heparin injection sites. HEENT: Normocephalic. Pupils equal and round. Mucous membranes pink and moist. CARDIOVASCULAR: Regular rate and rhythm. No murmur appreciated. RESPIRATORY: No accessory muscle use. Clear to auscultation. Breath sounds equal bilaterally. GASTROINTESTINAL: Abdomen soft, non-tender, nondistended and. Bowel sounds x4. MUSCULOSKELETAL: No obvious deformities. No clubbing or cyanosis. Bilateral lower extremity pitting edema. NEUROLOGICAL: Awake and alert. No focal neurological deficits. Moves upper and lower extremities spontaneously. Normal speech. PSYCHIATRIC: Grumpy mood and normal affect; insight and judgment normal. Procedures Bronchoscopy A/P Problem List: (1) COPD (chronic obstructive pulmonary disease) ICD Code: J44.9 Status: Acute (2) Pneumonia ICD Code: J18.9 Status: Acute Assessment and Plan 65-year-old male with past medical history of COPD, PE, A. fib who presented with - acute hypoxic respiratory failure due to COPD exacerbation/ pneumonia Improving. keep on oxygen to keep O2 sat > 90%- continue with steroids, oxygen and nebulization. We will monitor. - Severe sepsis (increased respiratory rate and leukocytosis with elevated lactic acid) secondary to Pseudomonas pneumonia Continue IV Zosyn sputum culture with pseudomonas sensitivity with no effective oral agent against it. Status post bronchoscopy follow-up studies growing Pseudomonas species Apprehensive about home health care IV antibiotics, currently agreeable. Place PICC line. Consult case management. Follow-up with ID. - Hyperglycemia. A1c 6.3. Outpatient PCP follow-up. - Constipation. Continue bowel regimen. - History of hepatitis C. Abdominal ultrasound with borderline liver enlargement and no sonographic evidence of cirrhosis, no ascites. Ammonia within normal limits. LFTs unremarkable. - Lower extremity edema. Seems to be dependent. Cirrhosis ruled out as above. Doubt CHF with BNP 40. Educated to elevate legs. ANGY young. Continue IV Lasix, increased frequency. - DVT/ GI prophylaxis with subq heparin and pepcid Written by Ravin Parsons, acting as scribe for Dr. Mcwilliams on 04/28/16 at 11:26. The documentation accurately reflects the work performed [id number] by me on at [id number] Discharge Planning Discharge planning with [facility] and IV antibiotics when arranged. Ravin Parsons Apr 28, 2016 11:27 Adriano Mcwilliams MD Apr 28, 2016 11:43
[2016-04-28] MEDS: LACTIC ACID (AMMONIUM LACTATE) 12% LOTION 225 GM BTL TOPICAL SCH ×2 (11:36→21:00)
[2016-04-28] MEDS ORDERED: POTA-243 PO (11:37)
[2016-04-28] MEDS ORDERED: FURO1TAB62 PO (11:37)
--- NOTE | 2016-04-28 11:38 | HHI.FF ---
Face to Face Verification Diagnosis: (1) Sepsis (2) Pneumonia due to Pseudomonas aeruginosa Home Health Nursing Order: Medical education Signs/symptoms of disease process Oxygen administration education Medication education-adverse effect Nursing assessment with vital signs I have seen patient Donny JamesJr on 04/28/16. My clinical findings support the need for the requested home health care services because: Patient has SOB Deconditioned w/ increased weakness I certify that my clinical findings support that this patient is homebound because: Unsafe to leave home unassisted Need for psychosocial assistance Adriano Mcwilliams MD Apr 28, 2016 11:38
[2016-04-28 12:00] VITALS: BP 106/63; PULSE 76; RESP 19; TEMP 97.4; O2SAT 94
[2016-04-28 16:00] VITALS: BP 109/61; PULSE 74; RESP 18; TEMP 96.3; O2SAT 96
[2016-04-28] MEDS: FUROSEMIDE 20 MG/2 ML VIAL IV PUSH SCH (16:03)
[2016-04-28 20:00] VITALS: BP 125/68; PULSE 85; RESP 22; TEMP 97.3; O2SAT 96
[2016-04-28] MEDS: MIRTAZAPINE 15 MG TAB PO SCH (21:20)
[2016-04-28] MEDS: traZODone HCL 100 MG TAB PO SCH (21:20)
[2016-04-29] VITALS (9 sets, daily range): BP systolic 105–137; BP diastolic 56–74; PULSE 60–85; RESP 18–21; TEMP 97.2–98.2; O2SAT 94–98
[2016-04-29] MEDS: CHLORHEXIDINE GLUCONATE 2 % 1 PACK (2 CLOTHS) TOP SCH (03:52)
[2016-04-29] MEDS: PIPERACIL-TAZO 4.5 GM PREMIX 100 ML IV SCH ×4 (03:52→21:50)
[2016-04-29] MEDS: oxyCODONE/ACETAMINOPHEN 7.5 MG/325 MG TAB PO PRN ×4 (03:52→21:51)
[2016-04-29 08:15] LABS: BICARBONATE 35.2 MEQ/L (21.0-32.0); MAGNESIUM 2.1 MG/DL (1.5-2.5); POTASSIUM 3.4 MEQ/L (3.5-5.1)
[2016-04-29] MEDS ORDERED: POTASSIUM CHLORIDE 10 MEQ CONTROLLED RELEASE TAB PO ONE (09:00)
[2016-04-29] MEDS: FLUTICASONE PROPIONATE 110 MCG/ACT 12 GM INHALER INH SCH ×2 (09:09→21:51)
[2016-04-29] MEDS: FLUTICASONE PROPIONATE 50 MCG/ACT 16 GM NASAL SPRAY NASAL SCH (09:09)
[2016-04-29] MEDS: predniSONE 20 MG TAB PO SCH (09:10)
[2016-04-29] MEDS: guaiFENesin E.R. 600 MG TAB PO SCH ×2 (09:10→21:51)
[2016-04-29] MEDS: POTASSIUM CHLORIDE 10 MEQ CONTROLLED RELEASE TAB PO SCH (09:10)
[2016-04-29] MEDS: FAMOTIDINE 20 MG TAB PO SCH ×2 (09:10→21:51)
[2016-04-29] MEDS: DOCUSATE SODIUM 50 MG/SENNA 8.6 MG TAB PO SCH ×2 (09:10→21:00)
[2016-04-29] MEDS: SODIUM CHLORIDE 0.9% FLUSH 5 ML FLUSH IV FLUSH SCH ×2 (09:11→21:00)
[2016-04-29] MEDS: HEPARIN SODIUM - SQ 10,000 UNITS/ML VIAL SQ SCH ×2 (09:12→21:00)
[2016-04-29] MEDS: LACTIC ACID (AMMONIUM LACTATE) 12% LOTION 225 GM BTL TOPICAL SCH ×2 (09:12→21:52)
[2016-04-29] MEDS: FUROSEMIDE 20 MG/2 ML VIAL IV PUSH SCH ×2 (09:12→15:56)
[2016-04-29] MEDS: RESP: ALBUTEROL 2.5 MG/IPRATROPIUM 0.5 MG NEB (PRN) NEB ×3 (09:18→17:02)
--- NOTE | 2016-04-29 10:10 | HHI.PR ---
Subjective Remarks Follow-up Pneumonia. States his lower extremity swelling is improving. Denies shortness of breath. Discussed with RN Objective Vitals Vital Signs Date Time Temp Pulse Resp B/P Pulse Ox O2 Delivery O2 Flow Rate FiO2 04/29/16 09:18 98 Nasal Cannula 3.00 04/29/16 08:01 97.2 60 19 110/67 98 04/29/16 04:00 97.3 75 20 132/62 94 04/29/16 00:46 95 Nasal Cannula 2.00 04/29/16 00:18 97.6 77 20 126/73 95 04/28/16 22:21 18 04/28/16 20:00 97.3 85 22 125/68 96 04/28/16 16:00 96.3 74 18 109/61 96 04/28/16 12:00 97.4 76 19 106/63 94 I/O 04/28/16 04/28/16 04/28/16 04/29/16 04/29/16 04/29/16 07:00 15:00 23:00 07:00 15:00 23:00 Intake Total 360 ml 360 ml 480 ml Balance 360 ml 360 ml 480 ml Intake Oral 360 ml 360 ml 480 ml # Voids 2 1 Result Diagram: 04/25/16 0647 04/29/16 0630 Objective Remarks GENERAL: This is a well-nourished, well-developed patient, in no apparent distress. Skin: DisColorations in the back, abdomen and bilateral lower extremities. CARDIOVASCULAR: Regular rate and rhythm without murmurs, gallops, or rubs. RESPIRATORY: Decreased Breath sounds equal bilaterally. Mild wheezes GASTROINTESTINAL: Abdomen soft, non-tender, distended. Normal active bowel sounds MUSCULOSKELETAL: Extremities without clubbing, cyanosis with bilateral lower extremity pitting edema. NEURO: Alert & Oriented x4 to person, place, time, situation. Moves all ext x4 Procedures Bronchoscopy A/P Problem List: (1) COPD (chronic obstructive pulmonary disease) ICD Code: J44.9 Status: Acute (2) Pneumonia ICD Code: J18.9 Status: Acute Assessment and Plan 65-year-old male with past medical history of COPD, PE, A. fib who presented with - acute hypoxic respiratory failure due to COPD exacerbation/ pneumonia Improving. keep on oxygen to keep O2 sat > 90%- continue with steroids, oxygen and nebulization. We will monitor. - Severe sepsis (increased respiratory rate and leukocytosis with elevated lactic acid) secondary to Pseudomonas pneumonia Continue IV Zosyn sputum culture with pseudomonas sensitivity with no effective oral agent against it. Status post bronchoscopy follow-up studies growing Pseudomonas putida sensitive to Levaquin Apprehensive about home health care IV antibiotics, currently agreeable. Place PICC line. Consult case management. Will discuss with primary ID re abx. - Hyperglycemia. A1c 6.3. Outpatient PCP follow-up. - Constipation. Continue bowel regimen. - History of hepatitis C. Abdominal ultrasound with borderline liver enlargement and no sonographic evidence of cirrhosis, no ascites. Ammonia within normal limits. LFTs unremarkable. - Lower extremity edema. Seems to be dependent. Cirrhosis ruled out as above. Doubt CHF with BNP 40. Educated to elevate legs. ANGY hose. Continue IV Lasix, increased frequency. Repeat BMP and magnesium in the morning - DVT/ GI prophylaxis with subq heparin and pepcid Discharge Planning Discharge when antibiotics arranged Adriano Mcwilliams MD Apr 29, 2016 10:10
[2016-04-29] MEDS: MIRTAZAPINE 15 MG TAB PO SCH (21:50)
[2016-04-29] MEDS: traZODone HCL 100 MG TAB PO SCH (21:51)
[2016-04-30] MEDS: CHLORHEXIDINE GLUCONATE 2 % 1 PACK (2 CLOTHS) TOP SCH (04:00)
[2016-04-30] MEDS: oxyCODONE/ACETAMINOPHEN 7.5 MG/325 MG TAB PO PRN ×3 (04:34→16:24)
[2016-04-30] MEDS: PIPERACIL-TAZO 4.5 GM PREMIX 100 ML IV SCH ×3 (04:34→16:17)
[2016-04-30 04:36] VITALS: BP 122/73; PULSE 64; RESP 20; TEMP 97.5; O2SAT 92
[2016-04-30 08:00] VITALS: BP 128/82; PULSE 91; RESP 20; TEMP 97.4; O2SAT 92
[2016-04-30] MEDS ORDERED: predniSONE 20 MG TAB PO SCH (09:00)
[2016-04-30] MEDS: FLUTICASONE PROPIONATE 110 MCG/ACT 12 GM INHALER INH SCH (09:00)
[2016-04-30] MEDS: HEPARIN SODIUM - SQ 10,000 UNITS/ML VIAL SQ SCH (09:00)
[2016-04-30] MEDS: LACTIC ACID (AMMONIUM LACTATE) 12% LOTION 225 GM BTL TOPICAL SCH (09:00)
[2016-04-30] MEDS: POTASSIUM CHLORIDE 10 MEQ CONTROLLED RELEASE TAB PO SCH (10:02)
[2016-04-30] MEDS: guaiFENesin E.R. 600 MG TAB PO SCH (10:02)
[2016-04-30] MEDS: DOCUSATE SODIUM 50 MG/SENNA 8.6 MG TAB PO SCH (10:03)
[2016-04-30] MEDS: FUROSEMIDE 20 MG/2 ML VIAL IV PUSH SCH ×2 (10:03→17:32)
[2016-04-30] MEDS: FAMOTIDINE 20 MG TAB PO SCH (10:03)
[2016-04-30] MEDS: FLUTICASONE PROPIONATE 50 MCG/ACT 16 GM NASAL SPRAY NASAL SCH (10:04)
[2016-04-30] MEDS: SODIUM CHLORIDE 0.9% FLUSH 5 ML FLUSH IV FLUSH SCH (10:06)
[2016-04-30 12:00] VITALS: BP 154/82; PULSE 84; RESP 20; TEMP 97.9; O2SAT 94
--- NOTE | 2016-04-30 13:18 | HHI.PR ---
Subjective Remarks Follow-up pneumonia. Patient seen with case management, he wants to go home and agrees with PICC line and home infusion IV antibiotic. Discussed with RN and ID. Objective Vitals Vital Signs Date Time Temp Pulse Resp B/P Pulse Ox O2 Delivery O2 Flow Rate FiO2 04/30/16 08:00 97.4 91 20 128/82 92 04/30/16 04:36 97.5 64 20 122/73 92 04/29/16 20:00 97.6 70 18 137/74 96 04/29/16 16:29 98.2 85 20 128/72 94 04/29/16 13:44 94 21 I/O 04/29/16 04/29/16 04/29/16 04/30/16 04/30/16 04/30/16 07:00 15:00 23:00 07:00 15:00 23:00 Intake Total 480 ml 600 ml Balance 480 ml 600 ml Intake Oral 480 ml 600 ml # Voids 1 3 2 # Bowel Movements 1 0 Result Diagram: 04/29/16 0630 Objective Remarks GENERAL: This is a well-nourished, well-developed patient, in no apparent distress. CARDIOVASCULAR: Regular rate and rhythm without murmurs, gallops, or rubs. RESPIRATORY: Decreased Breath sounds equal bilaterally. Mild wheezes GASTROINTESTINAL: Abdomen soft, non-tender, distended. Normal active bowel sounds MUSCULOSKELETAL: Extremities without clubbing, cyanosis with bilateral lower extremity pitting edema. NEURO: Alert & Oriented x4 to person, place, time, situation. Moves all ext x4 Procedures Bronchoscopy A/P Problem List: (1) COPD (chronic obstructive pulmonary disease) ICD Code: J44.9 Status: Acute (2) Pneumonia ICD Code: J18.9 Status: Acute Assessment and Plan 65-year-old male with past medical history of COPD, PE, A. fib who presented with - acute hypoxic respiratory failure due to COPD exacerbation/ pneumonia Improving. keep on oxygen to keep O2 sat > 90%- continue with steroids, oxygen and nebulization. We will monitor. - Severe sepsis (increased respiratory rate and leukocytosis with elevated lactic acid) secondary to Pseudomonas pneumonia Continue IV Zosyn sputum culture with pseudomonas sensitivity with no effective oral agent against it. Status post bronchoscopy follow-up studies growing Pseudomonas putida sensitive to Levaquin Apprehensive about home health care IV antibiotics, currently agreeable. Place PICC line. Consult case management. Discussed with ID, IV Zosyn for a total of 2 weeks - Hyperglycemia. A1c 6.3. Outpatient PCP follow-up. - Constipation. Continue bowel regimen. - History of hepatitis C. Abdominal ultrasound with borderline liver enlargement and no sonographic evidence of cirrhosis, no ascites. Ammonia within normal limits. LFTs unremarkable. - Lower extremity edema. Seems to be dependent. Cirrhosis ruled out as above. Doubt CHF with BNP 40. Educated to elevate legs. ANGY hose. Continue IV Lasix, increased frequency. Repeat BMP and magnesium in the morning - DVT/ GI prophylaxis with subq heparin and pepcid Discharge Planning Discharge when antibiotics arranged Adriano Mcwilliams MD Apr 30, 2016 13:18
[2016-04-30] MEDS ORDERED: PRED20 PO (13:33)
--- NOTE | 2016-04-30 14:04 | HHI.FF ---
Infusion Therapy Location of Infusion Therapy: Home Health Care IV Infusion Order Patient Information Patient Weight 95.4 kg Diagnosis: Diagnosis PSAE pneumonia Uncoded Allergies: PERFUMES/COLOGNES (Adverse Reaction, Intermediate, Wheezing, 01/23/16) SOB/DIFFICULTY BREATHING Administer Medication Piperacillin/Tazobactam 4.5 grams IV q 6 hours Zosyn 4.5 gm IV q6h CADD plus pump Stop Treatment: May 08, 2016 Additional Information Venous access: PICC Line Additional Instructions [x] Peripheral flush and dressing changes per protocol [x] Implanted port and central online content developer: * Implanted port: 10 ml Normal Saline followed by 5 ml Heparin 100 units/ml Heparin flush after each use and monthly to maintain. [] May leave port accessed during therapy. [] May leave peripheral site accessed for duration of therapy. [x] If patient has SOB or respiratory distress, check oxygen saturation. If less than 90% or clinical signs of respiratory distress, administer oxygen at 2 L/min. via nasal cannula and notify physician. [x] Anaphylaxis/Reaction orders: * Stop infusion. * Keep IV line open with saline flush. * Notify physician. * Monitor vital signs every 15 minutes until symptoms resolve. * Check Oxygen saturation; Oxygen at 2 L/min. via nasal cannula if less than 90% or clinical signs of respiratory distress. * Administer diphenhydramine (Benadryl) 25 mg IV STAT, (unless patient has received as pre-med). May repeat once, if necessary. * Solu-Cortef 250 mg IVP over 30-60 seconds, use 100 mg vials for each dissolution. * Epinephrine (1mg/1 ml) 0.3 mg subcutaneously or IVP now with any signs of respiratory distress. * Check with physician for new additional pre-med orders if patient is re- challenged or re-treated. [x] May remove PICC line when treatment complete, after confirming with Physician. [x] If the patient is admitted to the hospital, the ED, or transferred via [facility] , complete transfer form including medication reconciliation order sheet. Laboratory Tests Weekly Labs: CBC w/diff, Creatinine, LFT's (Hepatic function test) (every saturday - copy to me please fax [phone]) Migdalia Luna MD Apr 30, 2016 14:04
--- NOTE | 2016-04-30 14:39 | HHI.DS ---
Discharge Summary Admission Date Apr 19, 2016 at 05:10 Discharge Date: Apr 30, 2016 Admitting Diagnosis Hypoxic Respiratory failure, Severe Sepsis, PNA. (1) COPD (chronic obstructive pulmonary disease) ICD Code: J44.9 Diagnosis: Principal (2) Pneumonia ICD Code: J18.9 Diagnosis: Principal Procedures Bronchoscopy Brief History - From Admission 65 y/o man with longstanding COPD presents with hypoxemic respiratory distress. Improved on BiPAP, still requiring 85% FiO2. Chronic right lung infiltrate followed by Dr. Kearns. CBC/BMP: 04/29/16 0630 Significant Findings Laboratory Tests Test 04/27/16 04/28/16 04/29/16 16:55 05:45 06:30 Carbon Dioxide Level 34.0 MEQ/L 33.5 MEQ/L 35.2 MEQ/L (21.0-32.0) (21.0-32.0) (21.0-32.0) Estimat Glomerular Filtration 71 ML/MIN (>89) 77 ML/MIN (>89) 75 ML/MIN (>89) Rate Random Glucose 181 MG/DL (74-106) Ammonia LESS THAN 10 MCMOL/L (11-32) Albumin 3.1 GM/DL (3.4-5.0) Calcium Level 8.4 MG/DL 8.3 MG/DL (8.5-10.1) (8.5-10.1) Potassium Level 3.4 MEQ/L (3.5-5.1) Imaging Last Impressions Abdomen Ultrasound 04/27/16 0000 Signed Impressions: Service Date/Time: Wednesday, April 27, 2016 15:35 - CONCLUSION: Borderline liver enlargement without significant sonographic evidence of cirrhosis. No evidence of ascites. Simple right renal cyst. No evidence of acute process. Jon Pena MD Chest X-Ray 04/26/16 0000 Signed Impressions: Service Date/Time: April 18:01 - CONCLUSION: Parenchymal scarring with no evidence of pneumonia. Ulices Larsen MD Lower Extremity Ultrasound 04/19/16 0000 Signed Impressions: Service Date/Time: April 17:37 - CONCLUSION: Negative for DVT Mane Steele MD FACR CT Angiography 04/19/16 0000 Signed Impressions: Service Date/Time: April 09:43 - CONCLUSION: Progressive areas of airspace consolidation identified within the right upper lobe, right middle lobe and right lower lobe. This is consistent with acute infection in the setting of background centrilobular emphysema and bronchiectasis within the right upper lobe. No evidence of PE.. Zita Salinas MD PE at Discharge GENERAL: This is a well-nourished, well-developed patient, in no apparent distress. CARDIOVASCULAR: Regular rate and rhythm without murmurs, gallops, or rubs. RESPIRATORY: Decreased Breath sounds equal bilaterally. Mild wheezes GASTROINTESTINAL: Abdomen soft, non-tender, distended. Normal active bowel sounds MUSCULOSKELETAL: Extremities without clubbing, cyanosis with bilateral lower extremity pitting edema. NEURO: Alert & Oriented x4 to person, place, time, situation. Moves all ext x4 Hospital Course 65-year-old male with past medical history of COPD, PE, A. fib who presented with - acute hypoxic respiratory failure due to COPD exacerbation/ pneumonia Improving. keep on oxygen to keep O2 sat > 90%- continue with steroids, oxygen and nebulization. We will monitor. - Severe sepsis (increased respiratory rate and leukocytosis with elevated lactic acid) secondary to Pseudomonas pneumonia Continue IV Zosyn sputum culture with pseudomonas sensitivity with no effective oral agent against it. Status post bronchoscopy follow-up studies growing Pseudomonas putida sensitive to Levaquin Apprehensive about home health care IV antibiotics, currently agreeable. Place PICC line. Consult case management. Discussed with ID, IV Zosyn for a total of 2 weeks - Hyperglycemia. A1c 6.3. Outpatient PCP follow-up. - Constipation. Continue bowel regimen. - History of hepatitis C. Abdominal ultrasound with borderline liver enlargement and no sonographic evidence of cirrhosis, no ascites. Ammonia within normal limits. LFTs unremarkable. - Lower extremity edema. Seems to be dependent. Cirrhosis ruled out as above. Doubt CHF with BNP 40. Educated to elevate legs. ANGY hose. Continue IV Lasix, increased frequency. Repeat BMP and magnesium in the morning - DVT/ GI prophylaxis with subq heparin and pepcid Pt Condition on Discharge: Stable Discharge Disposition: Disch w/ Home Health Serv Discharge Time: <= 30 minutes Discharge Instructions DIET: Follow Instructions for: As Tolerated, No Restrictions Activities you can perform: Regular-No Restrictions Activities to Avoid: Driving Follow up Referrals: PCP Follow-up - 2-3 Days Pulmonology - 1 Week New Orders: BASIC METABOLIC PROF - 05/03/16 New Medications: Furosemide (Lasix) 20 Mg Tab 20 MG PO DAILY edema #10 Ref 0 TAB Oxygen tank (Oxygen tank) 1 Ea Tank 2 LITER GARRETT.CANULA CONTINUOUS Oxygen Concentrator Portable Gaseous 2 L/min via Nasal Cannula Continuous For 99 months HYPOXEMIA PREVENTION #1 CYLINDER Famotidine (Famotidine) 20 Mg Tab 20 MG PO Q12HR Manage Heartburn #60 TAB Oxycodone-Acetaminophen (Oxycodone-Acetaminophen) 7.5-325 mg Tab 1 TAB PO Q6H PRN PAIN SCALE 3-10 #28 TAB Potassium Chloride ER (Klor-Con 10) 10 Meq Tab 10 MEQ PO DAILY Electrolyte Replacement #10 TAB Prednisone (Prednisone) 20 Mg Tab 10 MG PO DAILY Broncospasm #2 TAB Continued Medications: Fluticasone 12 GM Inh (Flovent Hfa 12 GM Inh) 110 Mcg/Act Inh 2 PUFF INH BID Asthma Management #1 Ref 0 INHALER Fluticasone Propionate (Nasal) (Allergy Nasal [place] 24 Ho) 50 Mcg/Act Spr Ipratropium [place] (Ipratropium [place]) 1 Pow Pow Mirtazapine (Remeron) 15 Mg Tab 15 MG PO HS Depression Control #30 Ref 0 TAB Trazodone (Trazodone) 100 Mg Tab 100 MG PO HS Control Depression #30 Ref 0 TAB Umeclidinium-Vilanterol Inh (Anoro Ellipta Inh) 62.5-25 Mcg/Act Aero 1 PUFF INH DAILY COPD #1 Ref 0 INHALER Discontinued Medications: Cephalexin (Keflex) 250 Mg Cap 250 MG PO Q6H Infection Ref 0 CAP Adriano Mcwilliams MD Apr 30, 2016 14:39
[2016-04-30] MEDS: RESP: ALBUTEROL 2.5 MG/IPRATROPIUM 0.5 MG NEB (PRN) NEB (15:51)
[2016-04-30 15:52] VITALS: O2SAT 98
--- NOTE | 2016-04-30 20:37 | RADRPT ---
EXAM DATE/TIME: 04/30/2016 19:23 [facility] COMPARISON: CHEST SINGLE AP, April 21, 2016, 3:34. CT PULMONARY ANGIOGRAM, April 19, 2016, 9:43. INDICATIONS : PICC line placement. MEDICAL HISTORY : Chronic obstructive pulmonary disease. Gastroesophageal reflux disease. Hepatitis C. Hypertension . Pneumonia. SURGICAL HISTORY : Left and right wrist surgery. Shoulder surgery. ENCOUNTER: Initial ACUITY: 1 day PAIN SCORE: 0/10 LOCATION: Bilateral chest FINDINGS: A single view of the chest demonstrates stable airspace disease at the right lung with improved airsp natali disease at the right lung base compared with April. Minimal left basilar opacity. No significan t effusion. No pneumothorax. Right PICC line in superior vena cava. CONCLUSION: 1. Improved airspace consolidation in the right lung at the right lung base since April 21. No new consolidation. Stable opacity right upper lobe. PICC line tip in superior vena cava. Morgan José MD on April 30, 2016 at 20:32 Board Certified Radiologist. This report was verified electronically.
== END 2016-04-30 20:50 | disposition home health service (06) | DRG 853 ==
LOC: NEPC 03:53 → NEDA 05:10 → HIMN 06:52 → N04A 04-22 13:59
PROVIDERS: ADMIT Internal Medicine; ATTEND Internal Medicine
PROC: 5A09357 Assistance with Respiratory Ventilation, Less than 24 Consecutive Hours, Continuous Positive Airway Pressure (ICD-10-PCS; 2016-04-19)
PROC: 0BB78ZX Excision of Left Main Bronchus, Via Natural or Artificial Opening Endoscopic, Diagnostic (ICD-10-PCS; 2016-04-24)
PROC: 0BB18ZX Excision of Trachea, Via Natural or Artificial Opening Endoscopic, Diagnostic (ICD-10-PCS; 2016-04-24)
PROC: 0BB38ZX Excision of Right Main Bronchus, Via Natural or Artificial Opening Endoscopic, Diagnostic (ICD-10-PCS; 2016-04-24)
PROC: 0BBC8ZX Excision of Right Upper Lung Lobe, Via Natural or Artificial Opening Endoscopic, Diagnostic (ICD-10-PCS; principal; 2016-04-24 16:06)
PROC: 02HV33Z Insertion of Infusion Device into Superior Vena Cava, Percutaneous Approach (ICD-10-PCS; 2016-04-30)
PROC: B548ZZA Ultrasonography of Superior Vena Cava, Guidance (ICD-10-PCS; 2016-04-30)
DX: A41.9 Sepsis, unspecified organism (principal); J44.0 Chronic obstructive pulmonary disease with (acute) lower respiratory infection; J15.1 Pneumonia due to Pseudomonas; J96.01 Acute respiratory failure with hypoxia; J44.1 Chronic obstructive pulmonary disease with (acute) exacerbation; R65.20 Severe sepsis without septic shock; I48.0 Paroxysmal atrial fibrillation; K59.00 Constipation, unspecified; R73.9 Hyperglycemia, unspecified; B19.20 Unspecified viral hepatitis C without hepatic coma; R60.0 Localized edema; F41.9 Anxiety disorder, unspecified; Z86.711 Personal history of pulmonary embolism; Z79.52 Long term (current) use of systemic steroids; Z87.891 Personal history of nicotine dependence
CPT/HCPCS: 36569; 71010; 71020; 71275; 76700; 76937; 80048; 80053; 82040; 82140; 82805; 83036; 83605; 83735; 83880; 84100; 84484; 85025; 85610; 85730; 87015; 87040; 87070; 87071; 87077; 87102; 87116; 87186; 87205; 87206; 87449; 87556; 87641; 87798; 87804; 88112; 88305; 93005; 93970; 94002; 94620; 94640; 94664; 96374; 96375; J0171; J1100; J1644; J1720; J1940; J1956; J2250; J2270; J2405; J2543; J3010; J3370; J7030; J7050; J7512; J7613; Q9967